=== PATIENT | male | born 1955 | race Caucasian/White ===

== ENCOUNTER 2022-07-23 12:14 | Inpatient (IN) ==
[2022-07-23] MEDS ORDERED: ACETAMINOPHEN 500 MG TABLET PO STA (12:53)
[2022-07-23] MEDS ORDERED: methylPREDNISolone SOD SUC 125 MG/2 ML VIAL IV STA (13:33)
[2022-07-23 13:44] LABS: Eosinophils % 0.1 % (0.00-10.9); Hematocrit 25.9 VOL% (42.0-52.0); Hemoglobin 8.2 GM/DL (14.0-18.0); Immature Granulocytes % 2.7 %; Immature Granulocytes Absolute 0.19 #; Lymphocytes # 0.2 10*3/uL (1.4-4.0); Lymphocytes % 3.2 % (21.2-54.2); Mean Corpuscular HGB Conc 31.7 GM/DL (32-36); Mean Corpuscular Volume 86.9 FL (87-102); Mean Platelet Volume 8.8 FL (9.6-12.0); Monocytes # 0.5 10*3/uL (0.11-0.8); Monocytes % 6.9 % (1.7-12.7); Neutrophils % 87.1 % (38.7-73.9); Platelet Count 344 T/CUMM (130-400); Red Blood Count 2.98 MC/CUMM (3.8-5.5); Red Cell Distribution Width 14.2 % (9.3-17.3); White Blood Count 6.9 T/CUMM (4-12)
[2022-07-23 14:02] LABS: Alanine Aminotransferase 32 U/L (16-61); Albumin 2.6 G/DL (3.4-5.0); Alkaline Phosphatase 53 U/L (45-117); Aspartate Amino Transferase 38 U/L (0-37); Bilirubin,Total < 0.39 MG/DL (0.20-1.00); Blood Urea Nitrogen 69 MG/DL (7-18); Calcium 8.3 MG/DL (8.5-10.1); Carbon Dioxide 17 MMOL/L (21-32); Chloride 106 MMOL/L (98-107); Glucose 142 MG/DL (74-106); Osmolality,Calculated 287.4 MOS/KG (273-304); Potassium 5.2 MMOL/L (3.5-5.1); Sodium 133 MMOL/L (136-145); Total Protein 5.6 G/DL (6.4-8.2)
[2022-07-23 14:09] LABS: Arterial Base Excess iSTAT -7 MMOL/L (-2.5-2.5); Arterial Bicarbonate iSTAT 16.7 MMOL/L (20-26); Arterial O2 Saturation iSTAT 88 % (95-100); Arterial PCO2 iSTAT 26 MM HG (35-48); Arterial PO2 iSTAT 53 MM HG (80-95); Arterial Total CO2 iSTAT 17 MMO/L (23-27); Arterial pH iSTAT 7.416 (7.35-7.45)
[2022-07-23] MEDS ORDERED: PIPERACILLIN/TAZOBACTAM 3,375 MG in SODIUM CHLORIDE 0.9% 100 ML IV STA (14:09)
[2022-07-23 15:55] LABS: Band Neutrophils 2 % (0-10); Lymphocytes 2 % (20-55); Ovalocytes Slight; Platelet Estimate Normal
[2022-07-23 15:56] LABS: Polychromasia Slight; Total Cells Counted 100
[2022-07-23] MEDS ORDERED: ALBUTEROL 2.5 MG/3 ML NEB RESP TX PRN (18:28)
[2022-07-23] MEDS ORDERED: ONDANSETRON 4 MG/2 ML VIAL IV PRN (18:28)
[2022-07-23] MEDS: DEXAMETHASONE 4 MG/1 ML VIAL IV SCH (19:20)
[2022-07-23] MEDS: LACTATED RINGERS 1,000 ML IV SCH (19:21)
[2022-07-23] MEDS: ENOXAPARIN 30 MG/0.3 ML SYRINGE SUBCUT SCH (20:34)
[2022-07-23] MEDS: FAMOTIDINE 20 MG TABLET PO SCH (20:34)
[2022-07-24] MEDS: LACTATED RINGERS 1,000 ML IV SCH (04:45)
[2022-07-24 04:52] LABS: Arterial Base Excess iSTAT -9 MMOL/L (-2.5-2.5); Arterial O2 Saturation iSTAT 96 % (95-100); Arterial PCO2 iSTAT 28 MM HG (35-48); Arterial PO2 iSTAT 81 MM HG (80-95); Arterial Total CO2 iSTAT 17 MMO/L (23-27); Arterial pH iSTAT 7.373 (7.35-7.45)
[2022-07-24] MEDS: DEXAMETHASONE 4 MG/1 ML VIAL IV SCH ×2 (05:58→18:22)
[2022-07-24 06:11] LABS: Hematocrit 27.2 VOL% (42.0-52.0); Hemoglobin 8.7 GM/DL (14.0-18.0); Immature Granulocytes % 2.2 %; Immature Granulocytes Absolute 0.08 #; Lymphocytes # 0.1 10*3/uL (1.4-4.0); Lymphocytes % 2.4 % (21.2-54.2); Mean Corpuscular Volume 87.2 FL (87-102); Mean Platelet Volume 8.7 FL (9.6-12.0); Monocytes # 0.1 10*3/uL (0.11-0.8); Monocytes % 2.4 % (1.7-12.7); Platelet Count 317 T/CUMM (130-400); Red Blood Count 3.12 MC/CUMM (3.8-5.5); Red Cell Distribution Width 14.2 % (9.3-17.3); White Blood Count 3.7 T/CUMM (4-12)
[2022-07-24 06:29] LABS: Calcium 7.9 MG/DL (8.5-10.1); Osmolality,Calculated 290.5 MOS/KG (273-304); Potassium 5.6 MMOL/L (3.5-5.1)
[2022-07-24 06:55] LABS: Hypochromia Slight; Lymphocytes 3 % (20-55); Microcytosis Slight; Platelet Estimate Adequate; Total Cells Counted 100
[2022-07-24] MEDS: cefTRIAXone 1,000 MG in SODIUM CHLORIDE 0.9% 100 ML IV SCH (08:44)
[2022-07-24] MEDS: CHOLECALCIFEROL 5,000 UNIT TABLET PO SCH (08:44)
[2022-07-24] MEDS: MULTIVITAMIN (BEROCCA) TABLET PO SCH (08:44)
[2022-07-24] MEDS: ASCORBIC ACID 500 MG TABLET PO SCH (08:44)
[2022-07-24] MEDS: SODIUM CHLORIDE 0.9% 1,000 ML IV SCH ×2 (10:38→20:32)
[2022-07-24] MEDS ORDERED: MYCOPHENOLATE MOFETIL 250 MG CAPSULE PO SCH (11:41)
[2022-07-24] MEDS: TACROLIMUS 0.5 MG CAPSULE PO SCH ×2 (12:18→20:32)
[2022-07-24] MEDS: ALPRAZolam 0.5 MG TABLET PO PRN (15:51)
[2022-07-24] MEDS: amLODIPine 5 MG TABLET PO SCH (18:22)
[2022-07-24] MEDS: cloNIDine 0.1 MG TABLET PO SCH (20:32)
[2022-07-24] MEDS: FAMOTIDINE 20 MG TABLET PO SCH (20:32)
[2022-07-24] MEDS: MYCOPHENOLATE MOFETIL 250 MG CAPSULE PO SCH (20:32)
[2022-07-24] MEDS: carvediloL 3.125 MG TABLET PO SCH (20:32)
[2022-07-24] MEDS: ENOXAPARIN 30 MG/0.3 ML SYRINGE SUBCUT SCH (20:32)
[2022-07-25 05:10] LABS: Arterial Base Excess iSTAT -9 MMOL/L (-2.5-2.5); Arterial Bicarbonate iSTAT 16.5 MMOL/L (20-26); Arterial O2 Saturation iSTAT 92 % (95-100); Arterial PCO2 iSTAT 32 MM HG (35-48); Arterial PO2 iSTAT 68 MM HG (80-95); Arterial Total CO2 iSTAT 17 MMO/L (23-27); Arterial pH iSTAT 7.328 (7.35-7.45)
[2022-07-25] MEDS: DEXAMETHASONE 4 MG/1 ML VIAL IV SCH ×2 (05:50→18:17)
[2022-07-25] MEDS: SODIUM CHLORIDE 0.9% 1,000 ML IV SCH (05:51)
[2022-07-25 06:10] LABS: Calcium 8.1 MG/DL (8.5-10.1); Potassium 5.6 MMOL/L (3.5-5.1)
[2022-07-25 07:29] LABS: Hemoglobin 8.7 GM/DL (14.0-18.0); Immature Granulocytes % 2.5 %; Immature Granulocytes Absolute 0.23 #; Lymphocytes # 0.1 10*3/uL (1.4-4.0); Lymphocytes % 1.3 % (21.2-54.2); Mean Corpuscular HGB Conc 32.2 GM/DL (32-36); Mean Corpuscular Volume 87.7 FL (87-102); Mean Platelet Volume 9.4 FL (9.6-12.0); Monocytes # 0.3 10*3/uL (0.11-0.8); Monocytes % 3.6 % (1.7-12.7); Neutrophils % 92.6 % (38.7-73.9); Platelet Count 366 T/CUMM (130-400); Red Blood Count 3.08 MC/CUMM (3.8-5.5); Red Cell Distribution Width 14.4 % (9.3-17.3); White Blood Count 9.1 T/CUMM (4-12)
[2022-07-25 08:02] LABS: Band Neutrophils 2 % (0-10); Hypochromia Slight; Lymphocytes 1 % (20-55); Microcytosis Slight; Ovalocytes Slight; Total Cells Counted 100
[2022-07-25 08:03] LABS: Acanthocytes Few
[2022-07-25] MEDS: carvediloL 3.125 MG TABLET PO SCH ×2 (09:47→18:17)
[2022-07-25] MEDS: MULTIVITAMIN (BEROCCA) TABLET PO SCH (09:47)
[2022-07-25] MEDS: amLODIPine 5 MG TABLET PO SCH (09:47)
[2022-07-25] MEDS: CHOLECALCIFEROL 5,000 UNIT TABLET PO SCH (09:47)
[2022-07-25] MEDS: TACROLIMUS 0.5 MG CAPSULE PO SCH ×2 (09:47→21:00)
[2022-07-25] MEDS: MYCOPHENOLATE MOFETIL 250 MG CAPSULE PO SCH ×2 (09:47→20:59)
[2022-07-25] MEDS: cefTRIAXone 1,000 MG in SODIUM CHLORIDE 0.9% 100 ML IV SCH (09:47)
[2022-07-25] MEDS: ASCORBIC ACID 500 MG TABLET PO SCH (09:47)
[2022-07-25] MEDS: ALPRAZolam 0.5 MG TABLET PO PRN ×3 (09:56→21:54)
[2022-07-25] MEDS: SODIUM BICARB INJ 50 MEQ in SODIUM CHLORIDE 0.45% 1,000 ML IV SCH ×2 (10:59→21:54)
[2022-07-25] MEDS ORDERED: REMDESIVIR 200 MG in SODIUM CHLORIDE 0.9% 210 ML IV ONE (12:00)
[2022-07-25] MEDS ORDERED: amLODIPine 5 MG TABLET PO SCH (17:53)
[2022-07-25] MEDS: cloNIDine 0.1 MG TABLET PO SCH (20:59)
[2022-07-25] MEDS: ENOXAPARIN 30 MG/0.3 ML SYRINGE SUBCUT SCH (21:00)
[2022-07-25] MEDS: FAMOTIDINE 20 MG TABLET PO SCH (21:00)
[2022-07-26 03:42] LABS: Arterial Base Excess iSTAT -7 MMOL/L (-2.5-2.5); Arterial Bicarbonate iSTAT 17.8 MMOL/L (20-26); Arterial O2 Saturation iSTAT 89 % (95-100); Arterial PCO2 iSTAT 32 MM HG (35-48); Arterial PO2 iSTAT 59 MM HG (80-95); Arterial Total CO2 iSTAT 19 MMO/L (23-27)
[2022-07-26 04:27] LABS: Hematocrit 28.5 VOL% (42.0-52.0); Hemoglobin 9.1 GM/DL (14.0-18.0); Immature Granulocytes % 1.7 %; Immature Granulocytes Absolute 0.21 #; Lymphocytes # 0.1 10*3/uL (1.4-4.0); Mean Corpuscular HGB Conc 31.9 GM/DL (32-36); Mean Corpuscular Volume 86.9 FL (87-102); Mean Platelet Volume 9.1 FL (9.6-12.0); Monocytes # 0.4 10*3/uL (0.11-0.8); Monocytes % 3.5 % (1.7-12.7); Neutrophils % 93.8 % (38.7-73.9); Platelet Count 391 T/CUMM (130-400); Red Blood Count 3.28 MC/CUMM (3.8-5.5); White Blood Count 12.1 T/CUMM (4-12)
[2022-07-26] MEDS: ALPRAZolam 0.5 MG TABLET PO PRN ×2 (04:40→10:50)
[2022-07-26 04:41] LABS: Calcium 7.7 MG/DL (8.5-10.1); Osmolality,Calculated 297.2 MOS/KG (273-304); Potassium 5.3 MMOL/L (3.5-5.1)
[2022-07-26 04:50] LABS: Hypochromia Slight; Lymphocytes 1 % (20-55); Microcytosis Slight; Platelet Estimate Adequate; Total Cells Counted 100
[2022-07-26] MEDS: DEXAMETHASONE 4 MG/1 ML VIAL IV SCH ×2 (05:58→17:44)
[2022-07-26] MEDS: SODIUM BICARB INJ 50 MEQ in SODIUM CHLORIDE 0.45% 1,000 ML IV SCH (07:50)
[2022-07-26] MEDS ORDERED: FUROSEMIDE 40 MG/4 ML VIAL IV ONE (07:51)
[2022-07-26] MEDS: cefTRIAXone 1,000 MG in SODIUM CHLORIDE 0.9% 100 ML IV SCH (08:15)
[2022-07-26] MEDS: MORPHINE 2 MG/1 ML SYRINGE IV PRN ×3 (08:15→14:00)
[2022-07-26] MEDS ORDERED: SODIUM BICARB INJ 100 MEQ in SODIUM CHLORIDE 0.45% 1,000 ML IV SCH (08:17)
[2022-07-26] MEDS: amLODIPine 5 MG TABLET PO SCH (08:20)
[2022-07-26] MEDS: ASCORBIC ACID 500 MG TABLET PO SCH (08:20)
[2022-07-26] MEDS: MYCOPHENOLATE MOFETIL 250 MG CAPSULE PO SCH ×2 (08:20→20:19)
[2022-07-26] MEDS: MULTIVITAMIN (BEROCCA) TABLET PO SCH (08:20)
[2022-07-26] MEDS: CHOLECALCIFEROL 5,000 UNIT TABLET PO SCH (08:20)
[2022-07-26] MEDS: TACROLIMUS 0.5 MG CAPSULE PO SCH ×2 (08:20→20:20)
[2022-07-26] MEDS: carvediloL 3.125 MG TABLET PO SCH ×2 (08:20→17:24)
[2022-07-26] MEDS: REMDESIVIR 100 MG in SODIUM CHLORIDE 0.9% 100 ML IV SCH (08:45)
[2022-07-26 09:05] LABS: Bacteria,Urine Occasional /HPF (Few); Mucus,Urine Occasional /LPF (Occasional); RBC,Urine 1 /HPF (0-4)
[2022-07-26 09:07] LABS: Bilirubin,Urine Negative (Negative); Blood, Urine Trace mg/dL (Negative); Glucose,Urine (UA) Negative (Negative); Ketones,Urine Negative (Negative); Nitrite,Urine Negative (Negative); Protein,Urine 100 mg/dL (Negative); Urine Appearance Clear (Clear); Urine Color Yellow (Yellow); Urine Urobilinogen 0.2 eU/dL (<2.0)
[2022-07-26] MEDS ORDERED: OLANZapine 10 MG VIAL IM PRN (10:52)
[2022-07-26] MEDS ORDERED: ROCURONIUM 100 MG/10 ML VIAL IV ONE ×2 (11:00→11:10)
[2022-07-26] MEDS ORDERED: ETOMIDATE 20 MG/10 ML VIAL IV ONE ×3 (11:00→11:09)
[2022-07-26] MEDS ORDERED: METOPROLOL TARTRATE 5 MG/5 ML VIAL IV ONE (11:38)
[2022-07-26 12:26] LABS: Arterial Bicarbonate iSTAT 18.4 MMOL/L (20-26); Arterial pH iSTAT 7.23 (7.35-7.45)
[2022-07-26] MEDS: fentaNYL INJ 1,250 MCG in SODIUM CHLORIDE 0.9% 225 ML IV PRN (14:50)
[2022-07-26] MEDS ORDERED: SODIUM BICARBONATE 50 MEQ/50 ML VIAL IV ONE (15:19)
[2022-07-26 17:06] LABS: Arterial Base Excess iSTAT -5 MMOL/L (-2.5-2.5); Arterial Bicarbonate iSTAT 21.1 MMOL/L (20-26); Arterial O2 Saturation iSTAT 99 % (95-100); Arterial PCO2 iSTAT 45 MM HG (35-48); Arterial PO2 iSTAT 180 MM HG (80-95); Arterial Total CO2 iSTAT 22 MMO/L (23-27); Arterial pH iSTAT 7.284 (7.35-7.45)
[2022-07-26 17:27] LABS: Calcium 7.4 MG/DL (8.5-10.1); Osmolality,Calculated 300.2 MOS/KG (273-304); Potassium 5.5 MMOL/L (3.5-5.1)
[2022-07-26] MEDS: ENOXAPARIN 30 MG/0.3 ML SYRINGE SUBCUT SCH (20:19)
[2022-07-26] MEDS: FAMOTIDINE 20 MG TABLET PO SCH (20:19)
[2022-07-26] MEDS: cloNIDine 0.1 MG TABLET PO SCH (20:19)
[2022-07-27 03:36] LABS: Arterial Bicarbonate iSTAT 18.1 MMOL/L (20-26); Arterial pH iSTAT 7.272 (7.35-7.45)
[2022-07-27 04:21] LABS: Basophils % 0.1 % (0.0-0.8); Hemoglobin 8.2 GM/DL (14.0-18.0); Immature Granulocytes % 1.9 %; Immature Granulocytes Absolute 0.18 #; Lymphocytes # 0.1 10*3/uL (1.4-4.0); Lymphocytes % 1.4 % (21.2-54.2); Mean Corpuscular HGB Conc 31.5 GM/DL (32-36); Mean Corpuscular Volume 87.8 FL (87-102); Mean Platelet Volume 9.2 FL (9.6-12.0); Monocytes # 0.2 10*3/uL (0.11-0.8); Monocytes % 2.1 % (1.7-12.7); Neutrophils % 94.5 % (38.7-73.9); Platelet Count 331 T/CUMM (130-400); Red Blood Count 2.96 MC/CUMM (3.8-5.5); Red Cell Distribution Width 14.1 % (9.3-17.3); White Blood Count 9.4 T/CUMM (4-12)
[2022-07-27 04:38] LABS: Phosphorous 6.2 MG/DL (2.5-4.9)
[2022-07-27 04:52] LABS: Band Neutrophils 1 % (0-10); Eosinophils 1 % (0-10); Lymphocytes 1 % (20-55); Microcytosis Slight; Total Cells Counted 100
[2022-07-27 04:53] LABS: Hypochromia Slight; Ovalocytes Slight; Platelet Estimate Normal
[2022-07-27] MEDS: DEXAMETHASONE 4 MG/1 ML VIAL IV SCH ×2 (06:32→18:14)
[2022-07-27 07:40] LABS: Calcium 7.6 MG/DL (8.5-10.1); Osmolality,Calculated 299.2 MOS/KG (273-304); Potassium 5.6 MMOL/L (3.5-5.1)
[2022-07-27] MEDS: amLODIPine 5 MG TABLET PO SCH (08:55)
[2022-07-27] MEDS: ASCORBIC ACID 500 MG TABLET PO SCH (08:55)
[2022-07-27] MEDS: TACROLIMUS 0.5 MG CAPSULE PO SCH ×2 (08:55→20:32)
[2022-07-27] MEDS: CHOLECALCIFEROL 5,000 UNIT TABLET PO SCH (08:56)
[2022-07-27] MEDS: carvediloL 3.125 MG TABLET PO SCH ×2 (08:56→16:15)
[2022-07-27] MEDS: MULTIVITAMIN (BEROCCA) TABLET PO SCH (08:56)
[2022-07-27] MEDS: MYCOPHENOLATE MOFETIL 250 MG CAPSULE PO SCH ×2 (08:56→20:32)
[2022-07-27] MEDS: cefTRIAXone 1,000 MG in SODIUM CHLORIDE 0.9% 100 ML IV SCH (08:56)
[2022-07-27] MEDS: REMDESIVIR 100 MG in SODIUM CHLORIDE 0.9% 100 ML IV SCH (08:57)
[2022-07-27] MEDS: SODIUM BICARBONATE 650 MG TABLET PO SCH ×2 (09:53→20:32)
[2022-07-27] MEDS: CALCIUM ACETATE 667 MG CAPSULE PO SCH ×2 (11:56→16:15)
[2022-07-27] MEDS: fentaNYL INJ 1,250 MCG in SODIUM CHLORIDE 0.9% 225 ML IV PRN (12:30)
[2022-07-27] MEDS: INSULIN LISPRO 100 UNIT/ML SUBCUT SCH (18:13)
[2022-07-27] MEDS: FAMOTIDINE 20 MG TABLET PO SCH (20:32)
[2022-07-27] MEDS: ENOXAPARIN 30 MG/0.3 ML SYRINGE SUBCUT SCH (20:32)
[2022-07-27] MEDS: cloNIDine 0.1 MG TABLET PO SCH (20:32)
[2022-07-28] MEDS: INSULIN LISPRO 100 UNIT/ML SUBCUT SCH ×4 (00:18→17:28)
[2022-07-28 03:39] LABS: Arterial pH iSTAT 7.303 (7.35-7.45)
[2022-07-28 03:44] LABS: Basophils % 0.1 % (0.0-0.8); Hematocrit 23.7 VOL% (42.0-52.0); Hemoglobin 7.7 GM/DL (14.0-18.0); Immature Granulocytes % 2.2 %; Immature Granulocytes Absolute 0.25 #; Lymphocytes # 0.1 10*3/uL (1.4-4.0); Mean Corpuscular HGB Conc 32.5 GM/DL (32-36); Mean Corpuscular Volume 86.8 FL (87-102); Mean Platelet Volume 9.2 FL (9.6-12.0); Monocytes # 0.3 10*3/uL (0.11-0.8); Neutrophils % 93.7 % (38.7-73.9); Platelet Count 303 T/CUMM (130-400); Red Blood Count 2.73 MC/CUMM (3.8-5.5); Red Cell Distribution Width 14.1 % (9.3-17.3); White Blood Count 11.2 T/CUMM (4-12)
[2022-07-28 04:04] LABS: Phosphorous 6.3 MG/DL (2.5-4.9)
[2022-07-28 04:10] LABS: Alanine Aminotransferase 24 U/L (16-61); Albumin 1.8 G/DL (3.4-5.0); Alkaline Phosphatase 50 U/L (45-117); Aspartate Amino Transferase 20 U/L (0-37); Bilirubin,Total < 0.39 MG/DL (0.20-1.00); Blood Urea Nitrogen 103 MG/DL (7-18); Calcium 7.8 MG/DL (8.5-10.1); Carbon Dioxide 19 MMOL/L (21-32); Chloride 103 MMOL/L (98-107); Glucose 216 MG/DL (74-106); Osmolality,Calculated 300.7 MOS/KG (273-304); Potassium 5.6 MMOL/L (3.5-5.1); Sodium 131 MMOL/L (136-145); Total Protein 4.4 G/DL (6.4-8.2)
[2022-07-28 04:15] LABS: Band Neutrophils 1 % (0-10); Hypochromia Slight; Lymphocytes 2 % (20-55); Microcytosis Slight; Ovalocytes Slight; Total Cells Counted 100
[2022-07-28] MEDS: DEXAMETHASONE 4 MG/1 ML VIAL IV SCH ×2 (06:00→17:30)
[2022-07-28] MEDS: cefTRIAXone 1,000 MG in SODIUM CHLORIDE 0.9% 100 ML IV SCH (08:34)
[2022-07-28] MEDS: TACROLIMUS 0.5 MG CAPSULE PO SCH ×2 (08:36→21:08)
[2022-07-28] MEDS: MYCOPHENOLATE MOFETIL 250 MG CAPSULE PO SCH ×2 (08:36→21:07)
[2022-07-28] MEDS: ASCORBIC ACID 500 MG TABLET PO SCH (08:36)
[2022-07-28] MEDS: CALCIUM ACETATE 667 MG CAPSULE PO SCH ×3 (08:36→17:28)
[2022-07-28] MEDS: CHOLECALCIFEROL 5,000 UNIT TABLET PO SCH (08:37)
[2022-07-28] MEDS: amLODIPine 5 MG TABLET PO SCH (08:37)
[2022-07-28] MEDS: SODIUM BICARBONATE 650 MG TABLET PO SCH ×3 (08:37→21:08)
[2022-07-28] MEDS: MULTIVITAMIN (BEROCCA) TABLET PO SCH (08:37)
[2022-07-28] MEDS: carvediloL 3.125 MG TABLET PO SCH ×2 (08:37→17:10)
[2022-07-28] MEDS: REMDESIVIR 100 MG in SODIUM CHLORIDE 0.9% 100 ML IV SCH (09:12)
[2022-07-28] MEDS: INSULIN GLARGINE 100 UNIT/ML SUBCUT SCH (11:18)
[2022-07-28] MEDS: ALPRAZolam 0.5 MG TABLET PO PRN (12:51)
[2022-07-28] MEDS: fentaNYL INJ 1,250 MCG in SODIUM CHLORIDE 0.9% 225 ML IV PRN (14:00)
[2022-07-28] MEDS: SODIUM ZIRCONIUM CYCLOSILICATE 10 GM PACK PO SCH ×2 (14:11→21:07)
[2022-07-28] MEDS: cloNIDine 0.1 MG TABLET PO SCH (21:07)
[2022-07-28] MEDS: FAMOTIDINE 20 MG TABLET PO SCH (21:08)
[2022-07-28] MEDS: ENOXAPARIN 30 MG/0.3 ML SYRINGE SUBCUT SCH (21:08)
[2022-07-29] MEDS: INSULIN LISPRO 100 UNIT/ML SUBCUT SCH ×5 (00:02→17:51)
[2022-07-29] MEDS: MORPHINE 2 MG/1 ML SYRINGE IV PRN (01:33)
[2022-07-29 03:37] LABS: Arterial Bicarbonate iSTAT 18.2 MMOL/L (20-26); Arterial pH iSTAT 7.27 (7.35-7.45)
[2022-07-29 05:13] LABS: Basophils % 0.1 % (0.0-0.8); Hematocrit 22.5 VOL% (42.0-52.0); Hemoglobin 7.4 GM/DL (14.0-18.0); Immature Granulocytes Absolute 0.29 #; Lymphocytes # 0.2 10*3/uL (1.4-4.0); Lymphocytes % 1.2 % (21.2-54.2); Mean Corpuscular HGB Conc 32.9 GM/DL (32-36); Mean Corpuscular Volume 86.5 FL (87-102); Mean Platelet Volume 9.5 FL (9.6-12.0); Monocytes # 0.4 10*3/uL (0.11-0.8); Monocytes % 3.1 % (1.7-12.7); Neutrophils % 93.6 % (38.7-73.9); Platelet Count 304 T/CUMM (130-400); Red Cell Distribution Width 13.9 % (9.3-17.3); White Blood Count 14.4 T/CUMM (4-12)
[2022-07-29 05:29] LABS: Alanine Aminotransferase 25 U/L (16-61); Albumin 1.7 G/DL (3.4-5.0); Alkaline Phosphatase 47 U/L (45-117); Aspartate Amino Transferase 22 U/L (0-37); Bilirubin,Total < 0.39 MG/DL (0.20-1.00); Blood Urea Nitrogen 102 MG/DL (7-18); Carbon Dioxide 20 MMOL/L (21-32); Chloride 101 MMOL/L (98-107); Glucose 167 MG/DL (74-106); Osmolality,Calculated 301.4 MOS/KG (273-304); Potassium 5.2 MMOL/L (3.5-5.1); Sodium 133 MMOL/L (136-145); Total Protein 4.4 G/DL (6.4-8.2)
[2022-07-29] MEDS: fentaNYL INJ 1,250 MCG in SODIUM CHLORIDE 0.9% 225 ML IV PRN ×2 (05:34→20:25)
[2022-07-29 05:36] LABS: Phosphorous 6.5 MG/DL (2.5-4.9)
[2022-07-29 05:38] LABS: Lymphocytes 1 % (20-55); Platelet Estimate Adequate; Total Cells Counted 100
[2022-07-29 05:39] LABS: Hypochromia 1+; Microcytosis 1+; Ovalocytes Slight
[2022-07-29] MEDS: DEXAMETHASONE 4 MG/1 ML VIAL IV SCH ×2 (06:29→17:51)
[2022-07-29] MEDS: cefTRIAXone 1,000 MG in SODIUM CHLORIDE 0.9% 100 ML IV SCH (08:43)
[2022-07-29] MEDS: SODIUM ZIRCONIUM CYCLOSILICATE 10 GM PACK PO SCH ×3 (08:43→20:03)
[2022-07-29] MEDS: CALCIUM ACETATE 667 MG CAPSULE PO SCH ×3 (08:44→16:49)
[2022-07-29] MEDS: SODIUM BICARBONATE 650 MG TABLET PO SCH ×3 (08:44→20:02)
[2022-07-29] MEDS: MULTIVITAMIN (BEROCCA) TABLET PO SCH (08:45)
[2022-07-29] MEDS: ASCORBIC ACID 500 MG TABLET PO SCH (08:45)
[2022-07-29] MEDS: TACROLIMUS 0.5 MG CAPSULE PO SCH (08:45)
[2022-07-29] MEDS: MYCOPHENOLATE MOFETIL 250 MG CAPSULE PO SCH ×2 (08:45→20:02)
[2022-07-29] MEDS: carvediloL 3.125 MG TABLET PO SCH ×2 (08:45→16:49)
[2022-07-29] MEDS: amLODIPine 5 MG TABLET PO SCH (08:45)
[2022-07-29] MEDS: CHOLECALCIFEROL 5,000 UNIT TABLET PO SCH (08:45)
[2022-07-29] MEDS: INSULIN GLARGINE 100 UNIT/ML SUBCUT SCH (08:47)
[2022-07-29] MEDS: FAMOTIDINE 20 MG TABLET PO SCH (20:02)
[2022-07-29] MEDS: ENOXAPARIN 30 MG/0.3 ML SYRINGE SUBCUT SCH (20:02)
[2022-07-29] MEDS: cloNIDine 0.1 MG TABLET PO SCH (20:03)
[2022-07-30] MEDS: INSULIN LISPRO 100 UNIT/ML SUBCUT SCH ×5 (00:39→23:39)
[2022-07-30 03:20] LABS: Arterial Base Excess iSTAT -6 MMOL/L (-2.5-2.5); Arterial O2 Saturation iSTAT 93 % (95-100); Arterial PCO2 iSTAT 49 MM HG (35-48); Arterial PO2 iSTAT 80 MM HG (80-95); Arterial Total CO2 iSTAT 22 MMO/L (23-27); Arterial pH iSTAT 7.237 (7.35-7.45)
[2022-07-30 03:25] LABS: Basophils % 0.1 % (0.0-0.8); Hematocrit 23.5 VOL% (42.0-52.0); Hemoglobin 7.8 GM/DL (14.0-18.0); Immature Granulocytes % 2.9 %; Immature Granulocytes Absolute 0.45 #; Lymphocytes # 0.1 10*3/uL (1.4-4.0); Lymphocytes % 0.7 % (21.2-54.2); Mean Corpuscular HGB Conc 33.2 GM/DL (32-36); Mean Corpuscular Volume 86.4 FL (87-102); Mean Platelet Volume 9.1 FL (9.6-12.0); Monocytes # 0.4 10*3/uL (0.11-0.8); Monocytes % 2.6 % (1.7-12.7); Neutrophils % 93.7 % (38.7-73.9); Platelet Count 269 T/CUMM (130-400); Red Blood Count 2.72 MC/CUMM (3.8-5.5); White Blood Count 15.7 T/CUMM (4-12)
[2022-07-30 03:43] LABS: Hypochromia Slight; Lymphocytes 3 % (20-55); Microcytosis Slight; Platelet Estimate Adequate; Total Cells Counted 100
[2022-07-30 04:03] LABS: Alanine Aminotransferase 31 U/L (16-61); Albumin 1.7 G/DL (3.4-5.0); Alkaline Phosphatase 47 U/L (45-117); Aspartate Amino Transferase 22 U/L (0-37); Bilirubin,Total < 0.39 MG/DL (0.20-1.00); Blood Urea Nitrogen 118 MG/DL (7-18); Calcium 8.5 MG/DL (8.5-10.1); Carbon Dioxide 21 MMOL/L (21-32); Chloride 99 MMOL/L (98-107); Ferritin 204.1 ng/mL (26-388); Glucose 165 MG/DL (74-106); Osmolality,Calculated 305.5 MOS/KG (273-304); Sodium 132 MMOL/L (136-145); Total Protein 4.9 G/DL (6.4-8.2)
[2022-07-30] MEDS: DEXAMETHASONE 4 MG/1 ML VIAL IV SCH ×2 (05:41→20:02)
[2022-07-30] MEDS: CALCIUM ACETATE 667 MG CAPSULE PO SCH ×3 (08:57→17:05)
[2022-07-30] MEDS: carvediloL 3.125 MG TABLET PO SCH ×2 (08:57→17:03)
[2022-07-30] MEDS: MYCOPHENOLATE MOFETIL 250 MG CAPSULE PO SCH ×2 (08:59→20:02)
[2022-07-30] MEDS: CHOLECALCIFEROL 5,000 UNIT TABLET PO SCH (08:59)
[2022-07-30] MEDS: SODIUM ZIRCONIUM CYCLOSILICATE 10 GM PACK PO SCH (08:59)
[2022-07-30] MEDS: MULTIVITAMIN (BEROCCA) TABLET PO SCH (08:59)
[2022-07-30] MEDS: ASCORBIC ACID 500 MG TABLET PO SCH (08:59)
[2022-07-30] MEDS: cefTRIAXone 1,000 MG in SODIUM CHLORIDE 0.9% 100 ML IV SCH (09:00)
[2022-07-30] MEDS: amLODIPine 5 MG TABLET PO SCH (09:00)
[2022-07-30] MEDS: SODIUM BICARBONATE 650 MG TABLET PO SCH ×3 (09:12→20:03)
[2022-07-30] MEDS: INSULIN GLARGINE 100 UNIT/ML SUBCUT SCH (09:13)
[2022-07-30] MEDS: fentaNYL INJ 1,250 MCG in SODIUM CHLORIDE 0.9% 225 ML IV PRN ×2 (10:00→17:42)
[2022-07-30] MEDS ORDERED: ceFAZolin 1,000 MG VIAL ONE (17:17)
[2022-07-30] MEDS: ENOXAPARIN 30 MG/0.3 ML SYRINGE SUBCUT SCH (20:02)
[2022-07-30] MEDS: FAMOTIDINE 20 MG TABLET PO SCH (20:03)
[2022-07-30] MEDS: cloNIDine 0.1 MG TABLET PO SCH (20:03)
[2022-07-31] MEDS: fentaNYL INJ 1,250 MCG in SODIUM CHLORIDE 0.9% 225 ML IV PRN (00:18)
[2022-07-31 04:17] LABS: Arterial Bicarbonate iSTAT 19.6 MMOL/L (20-26); Arterial pH iSTAT 7.239 (7.35-7.45)
[2022-07-31 04:17] LABS: Hematocrit 23.4 VOL% (42.0-52.0); Hemoglobin 7.6 GM/DL (14.0-18.0); Immature Granulocytes % 2.5 %; Immature Granulocytes Absolute 0.39 #; Lymphocytes # 0.1 10*3/uL (1.4-4.0); Lymphocytes % 0.7 % (21.2-54.2); Mean Corpuscular HGB Conc 32.5 GM/DL (32-36); Mean Corpuscular Volume 87.3 FL (87-102); Mean Platelet Volume 9.6 FL (9.6-12.0); Monocytes # 0.3 10*3/uL (0.11-0.8); Monocytes % 1.6 % (1.7-12.7); Neutrophils % 95.2 % (38.7-73.9); Platelet Count 271 T/CUMM (130-400); Red Blood Count 2.68 MC/CUMM (3.8-5.5); Red Cell Distribution Width 14.3 % (9.3-17.3); White Blood Count 15.3 T/CUMM (4-12)
[2022-07-31 04:48] LABS: % Iron Saturation 5.6 % (18-50); Ferritin 256.2 ng/mL (26-388)
[2022-07-31 04:49] LABS: Alanine Aminotransferase 25 U/L (16-61); Albumin 1.7 G/DL (3.4-5.0); Alkaline Phosphatase 44 U/L (45-117); Aspartate Amino Transferase 21 U/L (0-37); Bilirubin,Total < 0.39 MG/DL (0.20-1.00); Blood Urea Nitrogen 137 MG/DL (7-18); Calcium 8.3 MG/DL (8.5-10.1); Carbon Dioxide 21 MMOL/L (21-32); Chloride 98 MMOL/L (98-107); Glucose 192 MG/DL (74-106); Osmolality,Calculated 308.8 MOS/KG (273-304); Sodium 130 MMOL/L (136-145)
[2022-07-31 04:52] LABS: Band Neutrophils 3 % (0-10); Lymphocytes 1 % (20-55); Total Cells Counted 100
[2022-07-31 04:53] LABS: Hypochromia Slight; Microcytosis Slight; Ovalocytes Slight
[2022-07-31 04:54] LABS: Polychromasia Slight
[2022-07-31 04:56] LABS: Platelet Estimate Normal; Tear Drop Cells Slight
[2022-07-31] MEDS: INSULIN LISPRO 100 UNIT/ML SUBCUT SCH ×4 (06:27→23:48)
[2022-07-31] MEDS: DEXAMETHASONE 4 MG/1 ML VIAL IV SCH ×2 (06:28→18:42)
[2022-07-31] MEDS: INSULIN GLARGINE 100 UNIT/ML SUBCUT SCH (08:13)
[2022-07-31] MEDS: AZITHROMYCIN 250 MG TABLET PO SCH (08:13)
[2022-07-31] MEDS: ZINC GLUCONATE 50 MG TABLET PO SCH (08:13)
[2022-07-31] MEDS: CALCIUM ACETATE 667 MG CAPSULE PO SCH ×3 (08:14→17:34)
[2022-07-31] MEDS: MYCOPHENOLATE MOFETIL 250 MG CAPSULE PO SCH ×2 (08:14→20:10)
[2022-07-31] MEDS: SODIUM BICARBONATE 650 MG TABLET PO SCH ×3 (08:14→20:10)
[2022-07-31] MEDS: CHOLECALCIFEROL 5,000 UNIT TABLET PO SCH (08:14)
[2022-07-31] MEDS: ASCORBIC ACID 500 MG TABLET PO SCH (08:14)
[2022-07-31] MEDS: amLODIPine 5 MG TABLET PO SCH (08:14)
[2022-07-31] MEDS: carvediloL 3.125 MG TABLET PO SCH ×2 (08:14→17:34)
[2022-07-31] MEDS: MULTIVITAMIN (BEROCCA) TABLET PO SCH (08:15)
[2022-07-31 13:22] LABS: Hepatitis B Core IgM Quant 0.13 Index; Hepatitis B Surface Ag Quant < 0.10 Index; Hepatitis B Surface Ag Result Non-Reactive (NonReactive); Hepatitis C Virus Ab Quant 0.02 Index; Hepatitis C Virus Ab Result Non-Reactive (NonReactive)
[2022-07-31] MEDS ORDERED: MEROPENEM 2,000 MG in SODIUM CHLORIDE 0.9% 100 ML IV SCH (14:30)
[2022-07-31] MEDS ORDERED: VANCOMYCIN INJ 750 MG in SODIUM CHLORIDE 0.9% 250 ML IV PRN (14:33)
[2022-07-31] MEDS ORDERED: HEPARIN 10,000 UNIT/10 ML VIAL IV SCH (17:30)
[2022-07-31] MEDS: FERROUS SULFATE 300 MG/5 ML UDCUP PO SCH (17:41)
[2022-07-31] MEDS: MEROPENEM 500 MG in SODIUM CHLORIDE 0.9% 100 ML IV SCH (17:42)
[2022-07-31] MEDS ORDERED: VANCOMYCIN INJ 2,000 MG in SODIUM CHLORIDE 0.9% 500 ML IV ONE (18:00)
[2022-07-31] MEDS: FAMOTIDINE 20 MG TABLET PO SCH (20:10)
[2022-07-31] MEDS: cloNIDine 0.1 MG TABLET PO SCH (20:10)
[2022-07-31] MEDS: ENOXAPARIN 30 MG/0.3 ML SYRINGE SUBCUT SCH (20:10)
[2022-08-01] MEDS: fentaNYL INJ 1,250 MCG in SODIUM CHLORIDE 0.9% 225 ML IV PRN ×2 (02:29→20:40)
[2022-08-01 03:59] LABS: Arterial Bicarbonate iSTAT 23.1 MMOL/L (20-26); Arterial pH iSTAT 7.294 (7.35-7.45)
[2022-08-01 04:12] LABS: Basophils % 0.1 % (0.0-0.8); Hematocrit 21.5 VOL% (42.0-52.0); Hemoglobin 6.9 GM/DL (14.0-18.0); Immature Granulocytes Absolute 0.31 #; Lymphocytes # 0.1 10*3/uL (1.4-4.0); Lymphocytes % 0.6 % (21.2-54.2); Mean Corpuscular HGB Conc 32.1 GM/DL (32-36); Mean Corpuscular Volume 85.3 FL (87-102); Mean Platelet Volume 9.7 FL (9.6-12.0); Monocytes # 0.2 10*3/uL (0.11-0.8); Monocytes % 1.9 % (1.7-12.7); Neutrophils % 94.4 % (38.7-73.9); Platelet Count 264 T/CUMM (130-400); Red Blood Count 2.52 MC/CUMM (3.8-5.5); Red Cell Distribution Width 14.4 % (9.3-17.3); White Blood Count 10.3 T/CUMM (4-12)
[2022-08-01 04:34] LABS: Alanine Aminotransferase 20 U/L (16-61); Albumin 1.5 G/DL (3.4-5.0); Alkaline Phosphatase 43 U/L (45-117); Aspartate Amino Transferase 18 U/L (0-37); Bilirubin,Total < 0.39 MG/DL (0.20-1.00); Blood Urea Nitrogen 109 MG/DL (7-18); Calcium 8.6 MG/DL (8.5-10.1); Carbon Dioxide 22 MMOL/L (21-32); Chloride 99 MMOL/L (98-107); Glucose 151 MG/DL (74-106); Osmolality,Calculated 304.2 MOS/KG (273-304); Potassium 4.6 MMOL/L (3.5-5.1); Sodium 134 MMOL/L (136-145); Total Protein 4.9 G/DL (6.4-8.2)
[2022-08-01 04:41] LABS: Folate 21.18 NG/ML (5.38-24.0); Vitamin B12 953 PG/ML (211-911)
[2022-08-01 04:46] LABS: Lymphocytes 1 % (20-55); Total Cells Counted 100
[2022-08-01 04:47] LABS: Acanthocytes Few; Microcytosis 1+; Ovalocytes Few
[2022-08-01 04:48] LABS: Tear Drop Cells Slight
[2022-08-01] MEDS ORDERED: SODIUM CHLORIDE 0.9% 1,000 ML IV PRN ×2 (04:48→08:16)
[2022-08-01] MEDS: INSULIN LISPRO 100 UNIT/ML SUBCUT SCH ×3 (05:18→17:41)
[2022-08-01] MEDS: DEXAMETHASONE 4 MG/1 ML VIAL IV SCH ×2 (06:00→17:41)
[2022-08-01] MEDS: SODIUM BICARBONATE 650 MG TABLET PO SCH (09:13)
[2022-08-01] MEDS: CALCIUM ACETATE 667 MG CAPSULE PO SCH ×3 (09:13→16:47)
[2022-08-01] MEDS: MULTIVITAMIN (BEROCCA) TABLET PO SCH (09:14)
[2022-08-01] MEDS: FERROUS SULFATE 300 MG/5 ML UDCUP PO SCH ×2 (09:14→16:47)
[2022-08-01] MEDS: ASCORBIC ACID 500 MG TABLET PO SCH (09:14)
[2022-08-01] MEDS: AZITHROMYCIN 250 MG TABLET PO SCH (09:15)
[2022-08-01] MEDS: MYCOPHENOLATE MOFETIL 250 MG CAPSULE PO SCH ×2 (09:15→20:38)
[2022-08-01] MEDS: carvediloL 3.125 MG TABLET PO SCH ×2 (09:15→16:47)
[2022-08-01] MEDS: ZINC GLUCONATE 50 MG TABLET PO SCH (09:15)
[2022-08-01] MEDS: CHOLECALCIFEROL 5,000 UNIT TABLET PO SCH (09:15)
[2022-08-01] MEDS: amLODIPine 5 MG TABLET PO SCH (09:15)
[2022-08-01] MEDS: INSULIN GLARGINE 100 UNIT/ML SUBCUT SCH (09:16)
[2022-08-01] MEDS: METOCLOPRAMIDE 10 MG/2 ML VIAL IV SCH ×2 (11:37→21:00)
[2022-08-01] MEDS ORDERED: METOPROLOL TARTRATE 5 MG/5 ML VIAL IV ONE ×2 (13:57→15:00)
[2022-08-01] MEDS: MEROPENEM 500 MG in SODIUM CHLORIDE 0.9% 100 ML IV SCH (16:48)
[2022-08-01] MEDS ORDERED: VANCOMYCIN INJ 750 MG in SODIUM CHLORIDE 0.9% 250 ML IV ONE (17:00)
[2022-08-01] MEDS: FAMOTIDINE 20 MG TABLET PO SCH (20:38)
[2022-08-01] MEDS: cloNIDine 0.1 MG TABLET PO SCH (20:38)
[2022-08-01] MEDS: ENOXAPARIN 30 MG/0.3 ML SYRINGE SUBCUT SCH (20:38)
[2022-08-02] MEDS: INSULIN LISPRO 100 UNIT/ML SUBCUT SCH ×5 (01:12→23:48)
[2022-08-02 03:11] LABS: Arterial Bicarbonate iSTAT 24.2 MMOL/L (20-26); Arterial pH iSTAT 7.285 (7.35-7.45)
[2022-08-02 03:30] LABS: Basophils % 0.1 % (0.0-0.8); Hematocrit 28.8 VOL% (42.0-52.0); Hemoglobin 9.4 GM/DL (14.0-18.0); Immature Granulocytes % 2.2 %; Immature Granulocytes Absolute 0.26 #; Lymphocytes # 0.1 10*3/uL (1.4-4.0); Lymphocytes % 0.6 % (21.2-54.2); Mean Corpuscular HGB Conc 32.6 GM/DL (32-36); Mean Corpuscular Volume 86.5 FL (87-102); Mean Platelet Volume 9.6 FL (9.6-12.0); Monocytes # 0.3 10*3/uL (0.11-0.8); Monocytes % 2.3 % (1.7-12.7); Neutrophils % 94.8 % (38.7-73.9); Platelet Count 267 T/CUMM (130-400); Red Blood Count 3.33 MC/CUMM (3.8-5.5); Red Cell Distribution Width 14.4 % (9.3-17.3); White Blood Count 11.7 T/CUMM (4-12)
[2022-08-02 03:36] LABS: Alanine Aminotransferase 22 U/L (16-61); Albumin 1.6 G/DL (3.4-5.0); Alkaline Phosphatase 46 U/L (45-117); Aspartate Amino Transferase 15 U/L (0-37); Bilirubin,Total < 0.39 MG/DL (0.20-1.00); Blood Urea Nitrogen 79 MG/DL (7-18); Calcium 8.4 MG/DL (8.5-10.1); Carbon Dioxide 24 MMOL/L (21-32); Chloride 100 MMOL/L (98-107); Ferritin 289.7 ng/mL (26-388); Glucose 184 MG/DL (74-106); Osmolality,Calculated 296.2 MOS/KG (273-304); Potassium 4.7 MMOL/L (3.5-5.1); Sodium 134 MMOL/L (136-145); Total Protein 5.1 G/DL (6.4-8.2)
[2022-08-02 03:59] LABS: Band Neutrophils 5 % (0-10); Lymphocytes 1 % (20-55); Platelet Estimate Normal; Total Cells Counted 100
[2022-08-02] MEDS: METOCLOPRAMIDE 10 MG/2 ML VIAL IV SCH ×3 (06:04→21:17)
[2022-08-02] MEDS: DEXAMETHASONE 4 MG/1 ML VIAL IV SCH (06:05)
[2022-08-02] MEDS: fentaNYL INJ 1,250 MCG in SODIUM CHLORIDE 0.9% 225 ML IV PRN ×2 (08:20→17:44)
[2022-08-02] MEDS: MYCOPHENOLATE MOFETIL 250 MG CAPSULE PO SCH ×2 (08:29→20:22)
[2022-08-02] MEDS: INSULIN GLARGINE 100 UNIT/ML SUBCUT SCH (08:29)
[2022-08-02] MEDS: CALCIUM ACETATE 667 MG CAPSULE PO SCH ×3 (08:29→17:02)
[2022-08-02] MEDS: CHOLECALCIFEROL 5,000 UNIT TABLET PO SCH (08:29)
[2022-08-02] MEDS: ASCORBIC ACID 500 MG TABLET PO SCH (08:29)
[2022-08-02] MEDS: carvediloL 3.125 MG TABLET PO SCH ×2 (08:29→17:02)
[2022-08-02] MEDS: MULTIVITAMIN (BEROCCA) TABLET PO SCH (08:29)
[2022-08-02] MEDS: amLODIPine 5 MG TABLET PO SCH (08:29)
[2022-08-02] MEDS: FERROUS SULFATE 300 MG/5 ML UDCUP PO SCH ×2 (08:29→17:02)
[2022-08-02] MEDS: AZITHROMYCIN 250 MG TABLET PO SCH (08:29)
[2022-08-02] MEDS: ZINC GLUCONATE 50 MG TABLET PO SCH (08:29)
[2022-08-02 09:35] LABS: Arterial Bicarbonate iSTAT 23.7 MMOL/L (20-26); Arterial pH iSTAT 7.302 (7.35-7.45)
[2022-08-02] MEDS: MEROPENEM 500 MG in SODIUM CHLORIDE 0.9% 100 ML IV SCH (17:02)
[2022-08-02] MEDS ORDERED: VANCOMYCIN INJ 750 MG in SODIUM CHLORIDE 0.9% 250 ML IV ONE (18:00)
[2022-08-02] MEDS: FAMOTIDINE 20 MG TABLET PO SCH (20:23)
[2022-08-02] MEDS: SENNA 8.6 MG TABLET PO SCH (20:23)
[2022-08-02] MEDS: cloNIDine 0.1 MG TABLET PO SCH (20:23)
[2022-08-02] MEDS: ENOXAPARIN 30 MG/0.3 ML SYRINGE SUBCUT SCH (20:24)
[2022-08-03] MEDS: fentaNYL INJ 1,250 MCG in SODIUM CHLORIDE 0.9% 225 ML IV PRN ×3 (03:32→17:50)
[2022-08-03 04:40] LABS: Arterial Base Excess iSTAT -3 MMOL/L (-2.5-2.5); Arterial Bicarbonate iSTAT 23.9 MMOL/L (20-26); Arterial O2 Saturation iSTAT 84 % (95-100); Arterial PCO2 iSTAT 50 MM HG (35-48); Arterial PO2 iSTAT 55 MM HG (80-95); Arterial Total CO2 iSTAT 25 MMO/L (23-27); Arterial pH iSTAT 7.291 (7.35-7.45)
[2022-08-03 04:54] LABS: Basophils % 0.1 % (0.0-0.8); Eosinophils # 0.2 10*3/uL (0.0-0.87); Eosinophils % 1.3 % (0.00-10.9); Hematocrit 32.8 VOL% (42.0-52.0); Hemoglobin 10.3 GM/DL (14.0-18.0); Immature Granulocytes % 4.1 %; Immature Granulocytes Absolute 0.55 #; Lymphocytes # 0.2 10*3/uL (1.4-4.0); Lymphocytes % 1.4 % (21.2-54.2); Mean Corpuscular HGB Conc 31.4 GM/DL (32-36); Mean Corpuscular Volume 88.4 FL (87-102); Mean Platelet Volume 9.6 FL (9.6-12.0); Monocytes # 0.2 10*3/uL (0.11-0.8); Monocytes % 1.3 % (1.7-12.7); NRBC # 0.03 10*3/uL; Neutrophils % 91.8 % (38.7-73.9); Platelet Count 275 T/CUMM (130-400); Red Blood Count 3.71 MC/CUMM (3.8-5.5); Red Cell Distribution Width 14.6 % (9.3-17.3); White Blood Count 13.6 T/CUMM (4-12)
[2022-08-03 05:46] LABS: Alanine Aminotransferase 19 U/L (16-61); Albumin 1.6 G/DL (3.4-5.0); Alkaline Phosphatase 51 U/L (45-117); Aspartate Amino Transferase 11 U/L (0-37); Bilirubin,Total < 0.39 MG/DL (0.20-1.00); Blood Urea Nitrogen 77 MG/DL (7-18); Calcium 8.7 MG/DL (8.5-10.1); Carbon Dioxide 25 MMOL/L (21-32); Chloride 102 MMOL/L (98-107); Glucose 95 MG/DL (74-106); Osmolality,Calculated 297.7 MOS/KG (273-304); Sodium 138 MMOL/L (136-145); Total Protein 4.6 G/DL (6.4-8.2)
[2022-08-03] MEDS: METOCLOPRAMIDE 10 MG/2 ML VIAL IV SCH ×3 (05:54→21:17)
[2022-08-03 05:57] LABS: Anisocytosis Slight; Band Neutrophils 4 % (0-10); Burr Cells Few; Eosinophils 1 % (0-10); Lymphocytes 4 % (20-55); Nucleated Red Blood Cells 1 /100 WBC (0-5); Platelet Estimate Normal; Tear Drop Cells Few; Total Cells Counted 100
[2022-08-03] MEDS: INSULIN LISPRO 100 UNIT/ML SUBCUT SCH ×3 (06:02→18:14)
[2022-08-03] MEDS: MYCOPHENOLATE MOFETIL 250 MG CAPSULE PO SCH ×2 (08:31→21:20)
[2022-08-03] MEDS: CHOLECALCIFEROL 5,000 UNIT TABLET PO SCH (08:31)
[2022-08-03] MEDS: ASCORBIC ACID 500 MG TABLET PO SCH (08:31)
[2022-08-03] MEDS: FERROUS SULFATE 300 MG/5 ML UDCUP PO SCH ×2 (08:31→17:44)
[2022-08-03] MEDS: MULTIVITAMIN (BEROCCA) TABLET PO SCH (08:31)
[2022-08-03] MEDS: POLYETHYLENE GLYCOL POWDER 17 GM PACK PO SCH (08:31)
[2022-08-03] MEDS: SENNA 8.6 MG TABLET PO SCH ×2 (08:31→21:19)
[2022-08-03] MEDS: DEXAMETHASONE 4 MG/1 ML VIAL IV SCH (08:31)
[2022-08-03] MEDS: amLODIPine 5 MG TABLET PO SCH (08:31)
[2022-08-03] MEDS: carvediloL 3.125 MG TABLET PO SCH ×2 (08:31→17:01)
[2022-08-03] MEDS: CALCIUM ACETATE 667 MG CAPSULE PO SCH ×3 (08:31→17:45)
[2022-08-03] MEDS: AZITHROMYCIN 250 MG TABLET PO SCH (08:32)
[2022-08-03] MEDS: ZINC GLUCONATE 50 MG TABLET PO SCH (08:32)
[2022-08-03] MEDS: INSULIN GLARGINE 100 UNIT/ML SUBCUT SCH (09:01)
[2022-08-03 09:17] LABS: Arterial Bicarbonate iSTAT 21.6 MMOL/L (20-26); Arterial pH iSTAT 7.303 (7.35-7.45)
[2022-08-03 13:05] LABS: Risk Ratio 4.58; VLDL Cholesterol 50.8 MG/DL
[2022-08-03] MEDS: MEROPENEM 500 MG in SODIUM CHLORIDE 0.9% 100 ML IV SCH (17:44)
[2022-08-03] MEDS: ENOXAPARIN 30 MG/0.3 ML SYRINGE SUBCUT SCH (21:19)
[2022-08-03] MEDS: cloNIDine 0.1 MG TABLET PO SCH (21:19)
[2022-08-03] MEDS: FAMOTIDINE 20 MG TABLET PO SCH (21:20)
[2022-08-04] MEDS: INSULIN LISPRO 100 UNIT/ML SUBCUT SCH ×5 (00:29→23:42)
[2022-08-04] MEDS: fentaNYL INJ 1,250 MCG in SODIUM CHLORIDE 0.9% 225 ML IV PRN ×2 (02:32→09:20)
[2022-08-04 04:39] LABS: Basophils % 0.1 % (0.0-0.8); Eosinophils % 0.4 % (0.00-10.9); Hematocrit 28.1 VOL% (42.0-52.0); Hemoglobin 8.8 GM/DL (14.0-18.0); Immature Granulocytes % 2.8 %; Immature Granulocytes Absolute 0.28 #; Lymphocytes # 0.2 10*3/uL (1.4-4.0); Lymphocytes % 1.7 % (21.2-54.2); Mean Corpuscular HGB Conc 31.3 GM/DL (32-36); Mean Corpuscular Volume 89.5 FL (87-102); Mean Platelet Volume 9.8 FL (9.6-12.0); Monocytes # 0.3 10*3/uL (0.11-0.8); Monocytes % 2.5 % (1.7-12.7); Neutrophils % 92.5 % (38.7-73.9); Platelet Count 245 T/CUMM (130-400); Red Blood Count 3.14 MC/CUMM (3.8-5.5); Red Cell Distribution Width 14.6 % (9.3-17.3); White Blood Count 9.8 T/CUMM (4-12)
[2022-08-04 04:52] LABS: Calcium 8.4 MG/DL (8.5-10.1); Osmolality,Calculated 304.8 MOS/KG (273-304); Potassium 4.6 MMOL/L (3.5-5.1)
[2022-08-04 05:15] LABS: Lymphocytes 3 % (20-55)
[2022-08-04 05:16] LABS: Anisocytosis 1+; Burr Cells Few; Ovalocytes Few; Poikilocytosis 1+
[2022-08-04 05:17] LABS: Total Cells Counted 100
[2022-08-04] MEDS: METOCLOPRAMIDE 10 MG/2 ML VIAL IV SCH ×3 (06:20→21:02)
[2022-08-04] MEDS: MULTIVITAMIN (BEROCCA) TABLET PO SCH (08:57)
[2022-08-04] MEDS: CALCIUM ACETATE 667 MG CAPSULE PO SCH ×3 (08:57→16:31)
[2022-08-04] MEDS: carvediloL 3.125 MG TABLET PO SCH ×2 (08:57→16:29)
[2022-08-04] MEDS: FERROUS SULFATE 300 MG/5 ML UDCUP PO SCH ×2 (08:57→16:29)
[2022-08-04] MEDS: CHOLECALCIFEROL 5,000 UNIT TABLET PO SCH (08:58)
[2022-08-04] MEDS: POLYETHYLENE GLYCOL POWDER 17 GM PACK PO SCH (08:58)
[2022-08-04] MEDS: DEXAMETHASONE 4 MG/1 ML VIAL IV SCH (08:58)
[2022-08-04] MEDS: MYCOPHENOLATE MOFETIL 250 MG CAPSULE PO SCH ×2 (08:58→20:58)
[2022-08-04] MEDS: ASCORBIC ACID 500 MG TABLET PO SCH (08:58)
[2022-08-04] MEDS: SENNA 8.6 MG TABLET PO SCH ×2 (08:58→20:58)
[2022-08-04] MEDS: AZITHROMYCIN 250 MG TABLET PO SCH (08:58)
[2022-08-04] MEDS: INSULIN GLARGINE 100 UNIT/ML SUBCUT SCH (08:58)
[2022-08-04] MEDS: ZINC GLUCONATE 50 MG TABLET PO SCH (08:58)
[2022-08-04] MEDS: TACROLIMUS 0.5 MG CAPSULE PO SCH ×2 (09:22→20:58)
[2022-08-04] MEDS: MEROPENEM 500 MG in SODIUM CHLORIDE 0.9% 100 ML IV SCH (16:29)
[2022-08-04] MEDS: cloNIDine 0.1 MG TABLET PO SCH (20:58)
[2022-08-04] MEDS: ENOXAPARIN 30 MG/0.3 ML SYRINGE SUBCUT SCH (20:58)
[2022-08-04] MEDS: FAMOTIDINE 20 MG TABLET PO SCH (20:58)
[2022-08-05] MEDS: fentaNYL INJ 1,250 MCG in SODIUM CHLORIDE 0.9% 225 ML IV PRN (04:08)
[2022-08-05 04:57] LABS: Basophils % 0.1 % (0.0-0.8); Eosinophils # 0.1 10*3/uL (0.0-0.87); Eosinophils % 0.6 % (0.00-10.9); Hematocrit 26.5 VOL% (42.0-52.0); Hemoglobin 8.3 GM/DL (14.0-18.0); Immature Granulocytes % 4.2 %; Immature Granulocytes Absolute 0.48 #; Lymphocytes # 0.2 10*3/uL (1.4-4.0); Mean Corpuscular HGB Conc 31.3 GM/DL (32-36); Mean Corpuscular Volume 89.2 FL (87-102); Mean Platelet Volume 9.8 FL (9.6-12.0); Monocytes # 0.4 10*3/uL (0.11-0.8); Monocytes % 3.5 % (1.7-12.7); Neutrophils % 89.6 % (38.7-73.9); Platelet Count 271 T/CUMM (130-400); Red Blood Count 2.97 MC/CUMM (3.8-5.5); Red Cell Distribution Width 14.5 % (9.3-17.3); White Blood Count 11.4 T/CUMM (4-12)
[2022-08-05 05:23] LABS: Albumin 1.4 G/DL (3.4-5.0); Bilirubin,Total 0.4 MG/DL (0.20-1.00); Calcium 8.9 MG/DL (8.5-10.1); Ferritin 369.3 ng/mL (26-388); Osmolality,Calculated 302.4 MOS/KG (273-304); Phosphorous 6.2 MG/DL (2.5-4.9); Potassium 4.7 MMOL/L (3.5-5.1); Total Protein 4.2 G/DL (6.4-8.2)
[2022-08-05] MEDS: INSULIN LISPRO 100 UNIT/ML SUBCUT SCH ×3 (05:27→18:59)
[2022-08-05 05:28] LABS: Lymphocytes 1 % (20-55); Polychromasia Slight; Total Cells Counted 100
[2022-08-05 05:29] LABS: Hypochromia Slight; Microcytosis 1+
[2022-08-05] MEDS: METOCLOPRAMIDE 10 MG/2 ML VIAL IV SCH ×3 (05:52→21:02)
[2022-08-05] MEDS: INSULIN GLARGINE 100 UNIT/ML SUBCUT SCH (09:13)
[2022-08-05] MEDS: FERROUS SULFATE 300 MG/5 ML UDCUP PO SCH ×2 (09:14→18:59)
[2022-08-05] MEDS: MULTIVITAMIN (BEROCCA) TABLET PO SCH (09:14)
[2022-08-05] MEDS: POLYETHYLENE GLYCOL POWDER 17 GM PACK PO SCH (09:14)
[2022-08-05] MEDS: ASCORBIC ACID 500 MG TABLET PO SCH (09:14)
[2022-08-05] MEDS: ZINC GLUCONATE 50 MG TABLET PO SCH (09:14)
[2022-08-05] MEDS: CALCIUM ACETATE 667 MG CAPSULE PO SCH ×3 (09:14→18:59)
[2022-08-05] MEDS: MYCOPHENOLATE MOFETIL 250 MG CAPSULE PO SCH ×2 (09:15→20:53)
[2022-08-05] MEDS: AZITHROMYCIN 250 MG TABLET PO SCH (09:15)
[2022-08-05] MEDS: CHOLECALCIFEROL 5,000 UNIT TABLET PO SCH (09:15)
[2022-08-05] MEDS: DEXAMETHASONE 4 MG/1 ML VIAL IV SCH (09:15)
[2022-08-05] MEDS: carvediloL 3.125 MG TABLET PO SCH ×2 (09:15→18:59)
[2022-08-05] MEDS: TACROLIMUS 0.5 MG CAPSULE PO SCH ×2 (09:15→20:53)
[2022-08-05] MEDS: SENNA 8.6 MG TABLET PO SCH ×2 (09:16→20:53)
[2022-08-05] MEDS ORDERED: PHENOL 1.4% THROAT SPRAY 177 ML BOTTLE PO PRN (10:30)
[2022-08-05 10:31] LABS: Arterial PCO2 iSTAT 50 MM HG (35-48); Arterial PO2 iSTAT 65 MM HG (80-95); Arterial pH iSTAT 7.273 (7.35-7.45)
[2022-08-05 10:32] LABS: Arterial Base Excess iSTAT -4 MMOL/L (-2.5-2.5); Arterial Bicarbonate iSTAT 23.3 MMOL/L (20-26); Arterial O2 Saturation iSTAT 89 % (95-100); Arterial Total CO2 iSTAT 25 MMO/L (23-27)
[2022-08-05] MEDS ORDERED: ALTEPLASE 2 MG VIAL IV PRN (13:28)
[2022-08-05 13:38] LABS: Arterial Base Excess iSTAT -5 MMOL/L (-2.5-2.5); Arterial Bicarbonate iSTAT 21.2 MMOL/L (20-26); Arterial O2 Saturation iSTAT 99 % (95-100); Arterial PCO2 iSTAT 44 MM HG (35-48); Arterial PO2 iSTAT 137 MM HG (80-95); Arterial Total CO2 iSTAT 23 MMO/L (23-27); Arterial pH iSTAT 7.291 (7.35-7.45)
[2022-08-05 13:40] LABS: Arterial pH iSTAT 7.302 (7.35-7.45)
[2022-08-05 13:41] LABS: Arterial Base Excess iSTAT -6 MMOL/L (-2.5-2.5); Arterial Bicarbonate iSTAT 20.5 MMOL/L (20-26); Arterial O2 Saturation iSTAT 98 % (95-100); Arterial PCO2 iSTAT 41 MM HG (35-48); Arterial PO2 iSTAT 118 MM HG (80-95); Arterial Total CO2 iSTAT 22 MMO/L (23-27)
[2022-08-05] MEDS: MEROPENEM 500 MG in SODIUM CHLORIDE 0.9% 100 ML IV SCH (18:45)
[2022-08-05] MEDS: cloNIDine 0.1 MG TABLET PO SCH (20:52)
[2022-08-05] MEDS: ENOXAPARIN 30 MG/0.3 ML SYRINGE SUBCUT SCH (20:52)
[2022-08-05] MEDS: FAMOTIDINE 20 MG TABLET PO SCH (20:53)
[2022-08-06] MEDS: INSULIN LISPRO 100 UNIT/ML SUBCUT SCH ×4 (00:20→17:55)
[2022-08-06] MEDS: fentaNYL INJ 1,250 MCG in SODIUM CHLORIDE 0.9% 225 ML IV PRN ×3 (03:49→21:51)
[2022-08-06 03:59] LABS: Arterial Base Excess iSTAT -3 MMOL/L (-2.5-2.5); Arterial Bicarbonate iSTAT 22.8 MMOL/L (20-26); Arterial O2 Saturation iSTAT 98 % (95-100); Arterial PCO2 iSTAT 44 MM HG (35-48); Arterial PO2 iSTAT 111 MM HG (80-95); Arterial Total CO2 iSTAT 24 MMO/L (23-27); Arterial pH iSTAT 7.318 (7.35-7.45)
[2022-08-06 05:01] LABS: Basophils % 0.1 % (0.0-0.8); Eosinophils # 0.1 10*3/uL (0.0-0.87); Eosinophils % 1.6 % (0.00-10.9); Hematocrit 25.4 VOL% (42.0-52.0); Immature Granulocytes % 4.3 %; Immature Granulocytes Absolute 0.38 #; Lymphocytes # 0.2 10*3/uL (1.4-4.0); Lymphocytes % 2.4 % (21.2-54.2); Mean Corpuscular HGB Conc 31.5 GM/DL (32-36); Mean Corpuscular Volume 90.1 FL (87-102); Monocytes # 0.3 10*3/uL (0.11-0.8); Monocytes % 3.8 % (1.7-12.7); Neutrophils % 87.8 % (38.7-73.9); Platelet Count 260 T/CUMM (130-400); Red Blood Count 2.82 MC/CUMM (3.8-5.5); Red Cell Distribution Width 14.6 % (9.3-17.3); White Blood Count 8.8 T/CUMM (4-12)
[2022-08-06 05:22] LABS: Eosinophils 1 % (0-10); Lymphocytes 2 % (20-55); Total Cells Counted 100
[2022-08-06 05:23] LABS: Hypochromia Slight; Microcytosis Slight; Platelet Estimate Adequate
[2022-08-06 05:33] LABS: Albumin 1.4 G/DL (3.4-5.0); Bilirubin,Total 0.4 MG/DL (0.20-1.00); Calcium 8.9 MG/DL (8.5-10.1); Osmolality,Calculated 297.1 MOS/KG (273-304); Phosphorous 5.7 MG/DL (2.5-4.9); Potassium 4.4 MMOL/L (3.5-5.1); Total Protein 4.6 G/DL (6.4-8.2)
[2022-08-06] MEDS: METOCLOPRAMIDE 10 MG/2 ML VIAL IV SCH ×3 (06:22→21:48)
[2022-08-06] MEDS: INSULIN GLARGINE 100 UNIT/ML SUBCUT SCH (08:45)
[2022-08-06] MEDS: FERROUS SULFATE 300 MG/5 ML UDCUP PO SCH ×2 (08:46→17:54)
[2022-08-06] MEDS: POLYETHYLENE GLYCOL POWDER 17 GM PACK PO SCH (08:46)
[2022-08-06] MEDS: MULTIVITAMIN (BEROCCA) TABLET PO SCH (08:48)
[2022-08-06] MEDS: CALCIUM ACETATE 667 MG CAPSULE PO SCH ×3 (08:48→17:54)
[2022-08-06] MEDS: DEXAMETHASONE 4 MG/1 ML VIAL IV SCH (08:48)
[2022-08-06] MEDS: ASCORBIC ACID 500 MG TABLET PO SCH (08:49)
[2022-08-06] MEDS: CHOLECALCIFEROL 5,000 UNIT TABLET PO SCH (08:49)
[2022-08-06] MEDS: SENNA 8.6 MG TABLET PO SCH ×2 (08:49→21:48)
[2022-08-06] MEDS: carvediloL 3.125 MG TABLET PO SCH ×2 (08:49→17:54)
[2022-08-06] MEDS: ZINC GLUCONATE 50 MG TABLET PO SCH (08:49)
[2022-08-06] MEDS: TACROLIMUS 0.5 MG CAPSULE PO SCH ×2 (08:49→21:47)
[2022-08-06] MEDS: AZITHROMYCIN 250 MG TABLET PO SCH (08:49)
[2022-08-06] MEDS: MYCOPHENOLATE MOFETIL 250 MG CAPSULE PO SCH ×2 (08:49→21:48)
[2022-08-06] MEDS: MEROPENEM 500 MG in SODIUM CHLORIDE 0.9% 100 ML IV SCH (17:55)
[2022-08-06] MEDS: ENOXAPARIN 60 MG/0.6 ML SYRINGE SUBCUT SCH (21:48)
[2022-08-06] MEDS: FAMOTIDINE 20 MG TABLET PO SCH (21:48)
[2022-08-06] MEDS: cloNIDine 0.1 MG TABLET PO SCH (21:48)
[2022-08-07] MEDS: INSULIN LISPRO 100 UNIT/ML SUBCUT SCH ×4 (01:25→18:17)
[2022-08-07 05:08] LABS: Eosinophils # 0.2 10*3/uL (0.0-0.87); Eosinophils % 2.9 % (0.00-10.9); Hematocrit 25.3 VOL% (42.0-52.0); Hemoglobin 8.1 GM/DL (14.0-18.0); Immature Granulocytes % 4.6 %; Immature Granulocytes Absolute 0.33 #; Lymphocytes # 0.2 10*3/uL (1.4-4.0); Lymphocytes % 2.9 % (21.2-54.2); Mean Corpuscular Volume 89.7 FL (87-102); Mean Platelet Volume 9.7 FL (9.6-12.0); Monocytes # 0.4 10*3/uL (0.11-0.8); Monocytes % 5.7 % (1.7-12.7); Neutrophils % 83.9 % (38.7-73.9); Platelet Count 262 T/CUMM (130-400); Red Blood Count 2.82 MC/CUMM (3.8-5.5); Red Cell Distribution Width 14.6 % (9.3-17.3); White Blood Count 7.2 T/CUMM (4-12)
[2022-08-07 05:29] LABS: Albumin 1.4 G/DL (3.4-5.0); Bilirubin,Total 0.4 MG/DL (0.20-1.00); Calcium 9.5 MG/DL (8.5-10.1); Osmolality,Calculated 299.5 MOS/KG (273-304); Potassium 4.7 MMOL/L (3.5-5.1); Total Protein 4.6 G/DL (6.4-8.2)
[2022-08-07 05:34] LABS: Band Neutrophils 2 % (0-10); Eosinophils 3 % (0-10); Lymphocytes 6 % (20-55); Total Cells Counted 100
[2022-08-07 05:35] LABS: Hypochromia Slight; Microcytosis 1+; Ovalocytes Slight; Platelet Estimate Normal; Polychromasia Slight
[2022-08-07] MEDS: METOCLOPRAMIDE 10 MG/2 ML VIAL IV SCH ×3 (05:57→21:16)
[2022-08-07] MEDS: fentaNYL INJ 1,250 MCG in SODIUM CHLORIDE 0.9% 225 ML IV PRN ×2 (06:44→18:13)
[2022-08-07] MEDS: carvediloL 3.125 MG TABLET PO SCH ×2 (09:36→16:51)
[2022-08-07] MEDS: FERROUS SULFATE 300 MG/5 ML UDCUP PO SCH ×2 (09:36→16:51)
[2022-08-07] MEDS: MYCOPHENOLATE MOFETIL 250 MG CAPSULE PO SCH ×2 (09:36→20:32)
[2022-08-07] MEDS: CALCIUM ACETATE 667 MG CAPSULE PO SCH ×3 (09:36→16:51)
[2022-08-07] MEDS: MULTIVITAMIN (BEROCCA) TABLET PO SCH (09:36)
[2022-08-07] MEDS: DEXAMETHASONE 4 MG/1 ML VIAL IV SCH (09:37)
[2022-08-07] MEDS: ENOXAPARIN 60 MG/0.6 ML SYRINGE SUBCUT SCH ×2 (09:37→20:31)
[2022-08-07] MEDS: POLYETHYLENE GLYCOL POWDER 17 GM PACK PO SCH (09:37)
[2022-08-07] MEDS: ZINC GLUCONATE 50 MG TABLET PO SCH (09:39)
[2022-08-07] MEDS: CHOLECALCIFEROL 5,000 UNIT TABLET PO SCH (09:39)
[2022-08-07] MEDS: TACROLIMUS 0.5 MG CAPSULE PO SCH ×2 (09:39→20:32)
[2022-08-07] MEDS: SENNA 8.6 MG TABLET PO SCH ×2 (09:39→20:32)
[2022-08-07] MEDS: ASCORBIC ACID 500 MG TABLET PO SCH (09:39)
[2022-08-07] MEDS: AZITHROMYCIN 250 MG TABLET PO SCH (09:39)
[2022-08-07] MEDS: INSULIN GLARGINE 100 UNIT/ML SUBCUT SCH (10:58)
[2022-08-07 12:21] LABS: Arterial Base Excess iSTAT -7 MMOL/L (-2.5-2.5); Arterial Bicarbonate iSTAT 19.2 MMOL/L (20-26); Arterial PCO2 iSTAT 41 MM HG (35-48); Arterial PO2 iSTAT 123 MM HG (80-95); Arterial pH iSTAT 7.283 (7.35-7.45)
[2022-08-07 12:22] LABS: Arterial O2 Saturation iSTAT 98 % (95-100); Arterial Total CO2 iSTAT 20 MMO/L (23-27)
[2022-08-07] MEDS: MEROPENEM 500 MG in SODIUM CHLORIDE 0.9% 100 ML IV SCH (16:51)
[2022-08-07] MEDS: FAMOTIDINE 20 MG TABLET PO SCH (20:32)
[2022-08-07] MEDS: cloNIDine 0.1 MG TABLET PO SCH (20:32)
[2022-08-08] MEDS: INSULIN LISPRO 100 UNIT/ML SUBCUT SCH ×5 (00:20→23:36)
[2022-08-08 03:15] LABS: Arterial Base Excess iSTAT -7 MMOL/L (-2.5-2.5); Arterial Bicarbonate iSTAT 17.9 MMOL/L (20-26); Arterial O2 Saturation iSTAT 97 % (95-100); Arterial PCO2 iSTAT 33 MM HG (35-48); Arterial PO2 iSTAT 93 MM HG (80-95); Arterial Total CO2 iSTAT 19 MMO/L (23-27); Arterial pH iSTAT 7.339 (7.35-7.45)
[2022-08-08 03:31] LABS: Basophils % 0.3 % (0.0-0.8); Eosinophils # 0.2 10*3/uL (0.0-0.87); Eosinophils % 3.2 % (0.00-10.9); Hematocrit 26.6 VOL% (42.0-52.0); Hemoglobin 8.5 GM/DL (14.0-18.0); Immature Granulocytes % 3.9 %; Immature Granulocytes Absolute 0.27 #; Lymphocytes # 0.2 10*3/uL (1.4-4.0); Lymphocytes % 2.8 % (21.2-54.2); Mean Corpuscular Volume 89.9 FL (87-102); Mean Platelet Volume 9.9 FL (9.6-12.0); Monocytes # 0.4 10*3/uL (0.11-0.8); Monocytes % 5.5 % (1.7-12.7); Neutrophils % 84.3 % (38.7-73.9); Platelet Count 282 T/CUMM (130-400); Red Blood Count 2.96 MC/CUMM (3.8-5.5); Red Cell Distribution Width 14.7 % (9.3-17.3); White Blood Count 6.9 T/CUMM (4-12)
[2022-08-08 03:38] LABS: Albumin 1.3 G/DL (3.4-5.0); Bilirubin,Total 0.4 MG/DL (0.20-1.00); Calcium 8.9 MG/DL (8.5-10.1); Potassium 4.5 MMOL/L (3.5-5.1); Total Protein 4.7 G/DL (6.4-8.2)
[2022-08-08 04:13] LABS: Acanthocytes Few; Eosinophils 6 % (0-10); Lymphocytes 3 % (20-55); Microcytosis 1+; Polychromasia Slight; Total Cells Counted 100
[2022-08-08 04:14] LABS: Ovalocytes Slight; Platelet Estimate Normal
[2022-08-08 04:15] LABS: Burr Cells Slight
[2022-08-08] MEDS: METOCLOPRAMIDE 10 MG/2 ML VIAL IV SCH ×3 (05:50→21:33)
[2022-08-08] MEDS: fentaNYL INJ 1,250 MCG in SODIUM CHLORIDE 0.9% 225 ML IV PRN ×2 (06:41→17:23)
[2022-08-08] MEDS: MYCOPHENOLATE MOFETIL 250 MG CAPSULE PO SCH ×2 (08:16→20:24)
[2022-08-08] MEDS: carvediloL 3.125 MG TABLET PO SCH ×2 (08:16→16:42)
[2022-08-08] MEDS: POLYETHYLENE GLYCOL POWDER 17 GM PACK PO SCH (08:16)
[2022-08-08] MEDS: DEXAMETHASONE 4 MG/1 ML VIAL IV SCH (08:16)
[2022-08-08] MEDS: ENOXAPARIN 60 MG/0.6 ML SYRINGE SUBCUT SCH ×2 (08:16→20:24)
[2022-08-08] MEDS: MULTIVITAMIN (BEROCCA) TABLET PO SCH (08:16)
[2022-08-08] MEDS: FERROUS SULFATE 300 MG/5 ML UDCUP PO SCH ×2 (08:16→16:42)
[2022-08-08] MEDS: CALCIUM ACETATE 667 MG CAPSULE PO SCH ×3 (08:16→16:42)
[2022-08-08] MEDS: METOPROLOL TARTRATE 5 MG/5 ML VIAL IV PRN (08:18)
[2022-08-08] MEDS: TACROLIMUS 0.5 MG CAPSULE PO SCH ×2 (08:19→20:28)
[2022-08-08] MEDS: SENNA 8.6 MG TABLET PO SCH ×2 (08:20→20:24)
[2022-08-08] MEDS: CHOLECALCIFEROL 5,000 UNIT TABLET PO SCH (08:20)
[2022-08-08] MEDS: ASCORBIC ACID 500 MG TABLET PO SCH (08:20)
[2022-08-08] MEDS: MORPHINE 2 MG/1 ML SYRINGE IV PRN (08:20)
[2022-08-08] MEDS: ZINC GLUCONATE 50 MG TABLET PO SCH (08:20)
[2022-08-08] MEDS: amLODIPine 5 MG TABLET PO SCH (09:54)
[2022-08-08] MEDS: INSULIN GLARGINE 100 UNIT/ML SUBCUT SCH (10:03)
[2022-08-08] MEDS: cloNIDine 0.1 MG TABLET PO SCH (20:24)
[2022-08-08] MEDS: FAMOTIDINE 20 MG TABLET PO SCH (20:24)
[2022-08-09] MEDS: fentaNYL INJ 1,250 MCG in SODIUM CHLORIDE 0.9% 225 ML IV PRN ×3 (01:32→19:58)
[2022-08-09 03:22] LABS: Arterial Base Excess iSTAT -5 MMOL/L (-2.5-2.5); Arterial Bicarbonate iSTAT 20.7 MMOL/L (20-26); Arterial O2 Saturation iSTAT 99 % (95-100); Arterial PCO2 iSTAT 38 MM HG (35-48); Arterial PO2 iSTAT 129 MM HG (80-95); Arterial Total CO2 iSTAT 22 MMO/L (23-27); Arterial pH iSTAT 7.344 (7.35-7.45)
[2022-08-09 03:30] LABS: Basophils % 0.2 % (0.0-0.8); Eosinophils # 0.3 10*3/uL (0.0-0.87); Eosinophils % 4.4 % (0.00-10.9); Hematocrit 27.6 VOL% (42.0-52.0); Hemoglobin 8.6 GM/DL (14.0-18.0); Immature Granulocytes % 2.2 %; Immature Granulocytes Absolute 0.13 #; Lymphocytes # 0.2 10*3/uL (1.4-4.0); Lymphocytes % 3.9 % (21.2-54.2); Mean Corpuscular HGB Conc 31.2 GM/DL (32-36); Mean Corpuscular Volume 88.7 FL (87-102); Mean Platelet Volume 9.9 FL (9.6-12.0); Monocytes # 0.4 10*3/uL (0.11-0.8); Monocytes % 6.3 % (1.7-12.7); Platelet Count 314 T/CUMM (130-400); Red Blood Count 3.11 MC/CUMM (3.8-5.5); Red Cell Distribution Width 15.1 % (9.3-17.3); White Blood Count 5.9 T/CUMM (4-12)
[2022-08-09 03:46] LABS: Albumin 1.4 G/DL (3.4-5.0); Bilirubin,Total 0.4 MG/DL (0.20-1.00); Calcium 9.8 MG/DL (8.5-10.1); Osmolality,Calculated 297.5 MOS/KG (273-304); Potassium 4.6 MMOL/L (3.5-5.1); Total Protein 4.7 G/DL (6.4-8.2)
[2022-08-09 04:08] LABS: Burr Cells 1+; Eosinophils 5 % (0-10); Lymphocytes 3 % (20-55); Total Cells Counted 100
[2022-08-09 04:09] LABS: Platelet Estimate Normal; Polychromasia Slight
[2022-08-09] MEDS: METOCLOPRAMIDE 10 MG/2 ML VIAL IV SCH ×3 (05:49→21:21)
[2022-08-09] MEDS: INSULIN LISPRO 100 UNIT/ML SUBCUT SCH ×3 (05:49→18:15)
[2022-08-09] MEDS: carvediloL 3.125 MG TABLET PO SCH ×2 (09:07→16:35)
[2022-08-09] MEDS: amLODIPine 5 MG TABLET PO SCH ×2 (09:08→14:15)
[2022-08-09] MEDS: INSULIN GLARGINE 100 UNIT/ML SUBCUT SCH (09:24)
[2022-08-09] MEDS: FERROUS SULFATE 300 MG/5 ML UDCUP PO SCH ×2 (09:25→16:35)
[2022-08-09] MEDS: POLYETHYLENE GLYCOL POWDER 17 GM PACK PO SCH (09:25)
[2022-08-09] MEDS: ENOXAPARIN 60 MG/0.6 ML SYRINGE SUBCUT SCH ×2 (09:26→21:21)
[2022-08-09] MEDS: methylPREDNISolone SOD SUC 40 MG/1 ML VIAL IV SCH ×2 (09:26→16:35)
[2022-08-09] MEDS: CHOLECALCIFEROL 5,000 UNIT TABLET PO SCH (09:27)
[2022-08-09] MEDS: TACROLIMUS 0.5 MG CAPSULE PO SCH ×2 (09:27→21:22)
[2022-08-09] MEDS: CALCIUM ACETATE 667 MG CAPSULE PO SCH ×3 (09:27→16:35)
[2022-08-09] MEDS: ASCORBIC ACID 500 MG TABLET PO SCH (09:27)
[2022-08-09] MEDS: MYCOPHENOLATE MOFETIL 250 MG CAPSULE PO SCH ×2 (09:27→21:22)
[2022-08-09] MEDS: MULTIVITAMIN (BEROCCA) TABLET PO SCH (09:27)
[2022-08-09] MEDS: ZINC GLUCONATE 50 MG TABLET PO SCH (09:27)
[2022-08-09] MEDS: SENNA 8.6 MG TABLET PO SCH ×2 (09:27→21:22)
[2022-08-09] MEDS: FAMOTIDINE 20 MG TABLET PO SCH (21:22)
[2022-08-09] MEDS: cloNIDine 0.1 MG TABLET PO SCH (21:22)
[2022-08-10] MEDS: INSULIN LISPRO 100 UNIT/ML SUBCUT SCH ×5 (00:43→23:27)
[2022-08-10] MEDS: methylPREDNISolone SOD SUC 40 MG/1 ML VIAL IV SCH ×3 (00:44→16:22)
[2022-08-10 03:16] LABS: Arterial Base Excess iSTAT -5 MMOL/L (-2.5-2.5); Arterial Bicarbonate iSTAT 21.5 MMOL/L (20-26); Arterial O2 Saturation iSTAT 95 % (95-100); Arterial PCO2 iSTAT 46 MM HG (35-48); Arterial PO2 iSTAT 87 MM HG (80-95); Arterial Total CO2 iSTAT 23 MMO/L (23-27); Arterial pH iSTAT 7.282 (7.35-7.45)
[2022-08-10 03:30] LABS: Basophils % 0.3 % (0.0-0.8); Hematocrit 26.9 VOL% (42.0-52.0); Hemoglobin 8.4 GM/DL (14.0-18.0); Immature Granulocytes Absolute 0.07 #; Lymphocytes # 0.1 10*3/uL (1.4-4.0); Lymphocytes % 1.8 % (21.2-54.2); Mean Corpuscular HGB Conc 31.2 GM/DL (32-36); Mean Corpuscular Volume 90.3 FL (87-102); Monocytes # 0.2 10*3/uL (0.11-0.8); Monocytes % 3.3 % (1.7-12.7); Neutrophils % 93.6 % (38.7-73.9); Platelet Count 304 T/CUMM (130-400); Red Blood Count 2.98 MC/CUMM (3.8-5.5); White Blood Count 7.3 T/CUMM (4-12)
[2022-08-10 03:52] LABS: Hypochromia Slight; Lymphocytes 2 % (20-55); Microcytosis Slight; Platelet Estimate Adequate; Total Cells Counted 100
[2022-08-10 04:01] LABS: Albumin 1.4 G/DL (3.4-5.0); Bilirubin,Total 0.4 MG/DL (0.20-1.00); Calcium 9.4 MG/DL (8.5-10.1); Osmolality,Calculated 294.2 MOS/KG (273-304); Potassium 5.5 MMOL/L (3.5-5.1); Total Protein 4.9 G/DL (6.4-8.2)
[2022-08-10] MEDS: fentaNYL INJ 1,250 MCG in SODIUM CHLORIDE 0.9% 225 ML IV PRN ×3 (04:06→21:44)
[2022-08-10] MEDS: METOCLOPRAMIDE 10 MG/2 ML VIAL IV SCH ×3 (06:20→21:15)
[2022-08-10] MEDS: FERROUS SULFATE 300 MG/5 ML UDCUP PO SCH ×2 (08:04→16:23)
[2022-08-10] MEDS: POLYETHYLENE GLYCOL POWDER 17 GM PACK PO SCH (08:05)
[2022-08-10] MEDS: ENOXAPARIN 60 MG/0.6 ML SYRINGE SUBCUT SCH ×2 (08:06→20:16)
[2022-08-10] MEDS: ZINC GLUCONATE 50 MG TABLET PO SCH (08:07)
[2022-08-10] MEDS: MULTIVITAMIN (BEROCCA) TABLET PO SCH (08:07)
[2022-08-10] MEDS: TACROLIMUS 0.5 MG CAPSULE PO SCH ×2 (08:07→20:16)
[2022-08-10] MEDS: MYCOPHENOLATE MOFETIL 250 MG CAPSULE PO SCH ×2 (08:07→20:17)
[2022-08-10] MEDS: CALCIUM ACETATE 667 MG CAPSULE PO SCH ×3 (08:07→16:22)
[2022-08-10] MEDS: SENNA 8.6 MG TABLET PO SCH ×2 (08:08→20:17)
[2022-08-10] MEDS: carvediloL 3.125 MG TABLET PO SCH ×2 (08:08→16:23)
[2022-08-10] MEDS: ASCORBIC ACID 500 MG TABLET PO SCH (08:08)
[2022-08-10] MEDS: CHOLECALCIFEROL 5,000 UNIT TABLET PO SCH (08:08)
[2022-08-10] MEDS: amLODIPine 5 MG TABLET PO SCH (08:08)
[2022-08-10] MEDS: INSULIN GLARGINE 100 UNIT/ML SUBCUT SCH (08:15)
[2022-08-10] MEDS: cloNIDine 0.1 MG TABLET PO SCH (20:16)
[2022-08-10] MEDS: FAMOTIDINE 20 MG TABLET PO SCH (20:16)
[2022-08-11] MEDS: methylPREDNISolone SOD SUC 40 MG/1 ML VIAL IV SCH ×3 (00:16→16:22)
[2022-08-11 03:29] LABS: Arterial Base Excess iSTAT -7 MMOL/L (-2.5-2.5); Arterial Bicarbonate iSTAT 20.4 MMOL/L (20-26); Arterial O2 Saturation iSTAT 97 % (95-100); Arterial PCO2 iSTAT 46 MM HG (35-48); Arterial PO2 iSTAT 102 MM HG (80-95); Arterial Total CO2 iSTAT 22 MMO/L (23-27); Arterial pH iSTAT 7.252 (7.35-7.45)
[2022-08-11 03:47] LABS: Basophils % 0.3 % (0.0-0.8); Eosinophils % 0.2 % (0.00-10.9); Hematocrit 27.5 VOL% (42.0-52.0); Hemoglobin 8.7 GM/DL (14.0-18.0); Immature Granulocytes % 0.8 %; Immature Granulocytes Absolute 0.08 #; Lymphocytes # 0.1 10*3/uL (1.4-4.0); Mean Corpuscular HGB Conc 31.6 GM/DL (32-36); Mean Corpuscular Volume 91.1 FL (87-102); Monocytes # 0.2 10*3/uL (0.11-0.8); Neutrophils % 95.7 % (38.7-73.9); Platelet Count 362 T/CUMM (130-400); Red Blood Count 3.02 MC/CUMM (3.8-5.5); Red Cell Distribution Width 15.1 % (9.3-17.3); White Blood Count 9.93 T/CUMM (4-12)
[2022-08-11 04:09] LABS: Albumin 1.6 G/DL (3.4-5.0); Bilirubin,Total 0.4 MG/DL (0.20-1.00); Calcium 9.6 MG/DL (8.5-10.1); Osmolality,Calculated 300.4 MOS/KG (273-304); Potassium 5.8 MMOL/L (3.5-5.1); Total Protein 4.6 G/DL (6.4-8.2)
[2022-08-11 04:12] LABS: Band Neutrophils 1 % (0-10); Hypochromia Slight; Lymphocytes 2 % (20-55); Platelet Estimate Normal; Total Cells Counted 100
[2022-08-11] MEDS: INSULIN LISPRO 100 UNIT/ML SUBCUT SCH ×4 (05:10→23:18)
[2022-08-11] MEDS: fentaNYL INJ 1,250 MCG in SODIUM CHLORIDE 0.9% 225 ML IV PRN ×2 (06:05→19:16)
[2022-08-11] MEDS: METOCLOPRAMIDE 10 MG/2 ML VIAL IV SCH ×3 (06:06→21:05)
[2022-08-11] MEDS: ENOXAPARIN 60 MG/0.6 ML SYRINGE SUBCUT SCH (08:19)
[2022-08-11] MEDS: FERROUS SULFATE 300 MG/5 ML UDCUP PO SCH ×2 (08:19→16:22)
[2022-08-11] MEDS: CALCIUM ACETATE 667 MG CAPSULE PO SCH ×3 (08:20→16:22)
[2022-08-11] MEDS: CHOLECALCIFEROL 5,000 UNIT TABLET PO SCH (08:20)
[2022-08-11] MEDS: SENNA 8.6 MG TABLET PO SCH ×2 (08:20→21:05)
[2022-08-11] MEDS: MULTIVITAMIN (BEROCCA) TABLET PO SCH (08:20)
[2022-08-11] MEDS: TACROLIMUS 0.5 MG CAPSULE PO SCH ×2 (08:20→21:05)
[2022-08-11] MEDS: amLODIPine 5 MG TABLET PO SCH (08:20)
[2022-08-11] MEDS: ZINC GLUCONATE 50 MG TABLET PO SCH (08:20)
[2022-08-11] MEDS: carvediloL 3.125 MG TABLET PO SCH ×2 (08:20→16:22)
[2022-08-11] MEDS: MYCOPHENOLATE MOFETIL 250 MG CAPSULE PO SCH ×2 (08:20→21:06)
[2022-08-11] MEDS: POLYETHYLENE GLYCOL POWDER 17 GM PACK PO SCH (08:21)
[2022-08-11] MEDS: ASCORBIC ACID 500 MG TABLET PO SCH (08:21)
[2022-08-11] MEDS ORDERED: SODIUM POLYSTYRENE SULFATE 15 GM/60 ML BOTTLE PO ONE (08:29)
[2022-08-11] MEDS: FLUCONAZOLE 200 MG TABLET PO SCH (10:36)
[2022-08-11] MEDS: INSULIN GLARGINE 100 UNIT/ML SUBCUT SCH (10:37)
[2022-08-11] MEDS: METOPROLOL TARTRATE 5 MG/5 ML VIAL IV PRN (11:23)
[2022-08-11] MEDS: diphenhydrAMINE 25 MG/10 ML UDCUP PO PRN ×2 (13:59→21:05)
[2022-08-11] MEDS: cloNIDine 0.1 MG TABLET PO SCH (21:05)
[2022-08-11] MEDS: FAMOTIDINE 20 MG TABLET PO SCH (21:05)
[2022-08-11] MEDS: APIXABAN 2.5 MG TABLET PO SCH (21:05)
[2022-08-12] MEDS: methylPREDNISolone SOD SUC 40 MG/1 ML VIAL IV SCH ×4 (00:28→23:54)
[2022-08-12 03:35] LABS: Arterial Base Excess iSTAT -6 MMOL/L (-2.5-2.5); Arterial Bicarbonate iSTAT 19.8 MMOL/L (20-26); Arterial O2 Saturation iSTAT 98 % (95-100); Arterial PCO2 iSTAT 41 MM HG (35-48); Arterial PO2 iSTAT 115 MM HG (80-95); Arterial Total CO2 iSTAT 21 MMO/L (23-27); Arterial pH iSTAT 7.288 (7.35-7.45)
[2022-08-12 03:51] LABS: Basophils % 0.3 % (0.0-0.8); Eosinophils % 0.1 % (0.00-10.9); Hematocrit 25.9 VOL% (42.0-52.0); Hemoglobin 8.1 GM/DL (14.0-18.0); Immature Granulocytes % 0.6 %; Immature Granulocytes Absolute 0.05 #; Lymphocytes # 0.1 10*3/uL (1.4-4.0); Lymphocytes % 1.1 % (21.2-54.2); Mean Corpuscular HGB Conc 31.3 GM/DL (32-36); Mean Corpuscular Volume 90.2 FL (87-102); Mean Platelet Volume 9.9 FL (9.6-12.0); Monocytes # 0.2 10*3/uL (0.11-0.8); Monocytes % 2.4 % (1.7-12.7); Neutrophils % 95.5 % (38.7-73.9); Platelet Count 355 T/CUMM (130-400); Red Blood Count 2.87 MC/CUMM (3.8-5.5); Red Cell Distribution Width 15.1 % (9.3-17.3); White Blood Count 8.86 T/CUMM (4-12)
[2022-08-12 04:14] LABS: Lymphocytes 1 % (20-55); Platelet Estimate Adequate; Total Cells Counted 100
[2022-08-12 04:43] LABS: Albumin 1.6 G/DL (3.4-5.0); Bilirubin,Total 0.4 MG/DL (0.20-1.00); Calcium 9.1 MG/DL (8.5-10.1); Osmolality,Calculated 304.4 MOS/KG (273-304); Phosphorous 8.6 MG/DL (2.5-4.9); Potassium 5.9 MMOL/L (3.5-5.1); Total Protein 4.3 G/DL (6.4-8.2)
[2022-08-12] MEDS: METOCLOPRAMIDE 10 MG/2 ML VIAL IV SCH ×3 (05:06→21:25)
[2022-08-12] MEDS: INSULIN LISPRO 100 UNIT/ML SUBCUT SCH ×4 (05:07→23:58)
[2022-08-12] MEDS: APIXABAN 2.5 MG TABLET PO SCH ×2 (08:29→20:19)
[2022-08-12] MEDS: amLODIPine 5 MG TABLET PO SCH (08:29)
[2022-08-12] MEDS: FERROUS SULFATE 300 MG/5 ML UDCUP PO SCH ×2 (08:29→16:52)
[2022-08-12] MEDS: TACROLIMUS 0.5 MG CAPSULE PO SCH ×2 (08:29→20:19)
[2022-08-12] MEDS: FLUCONAZOLE 200 MG TABLET PO SCH (08:29)
[2022-08-12] MEDS: POLYETHYLENE GLYCOL POWDER 17 GM PACK PO SCH (08:29)
[2022-08-12] MEDS: CALCIUM ACETATE 667 MG CAPSULE PO SCH ×3 (08:29→16:52)
[2022-08-12] MEDS: MULTIVITAMIN (BEROCCA) TABLET PO SCH (08:29)
[2022-08-12] MEDS: carvediloL 3.125 MG TABLET PO SCH ×2 (08:29→16:52)
[2022-08-12] MEDS: MYCOPHENOLATE MOFETIL 250 MG CAPSULE PO SCH ×2 (08:29→20:19)
[2022-08-12] MEDS: CHOLECALCIFEROL 5,000 UNIT TABLET PO SCH (08:30)
[2022-08-12] MEDS: ASCORBIC ACID 500 MG TABLET PO SCH (08:30)
[2022-08-12] MEDS: SENNA 8.6 MG TABLET PO SCH ×2 (08:30→20:15)
[2022-08-12] MEDS: ZINC GLUCONATE 50 MG TABLET PO SCH (08:30)
[2022-08-12] MEDS: fentaNYL INJ 2,500 MCG in SODIUM CHLORIDE 0.9% 75 ML IV PRN (08:31)
[2022-08-12] MEDS: INSULIN GLARGINE 100 UNIT/ML SUBCUT SCH (10:27)
[2022-08-12] MEDS: METOPROLOL TARTRATE 5 MG/5 ML VIAL IV PRN ×2 (10:27→16:53)
[2022-08-12] MEDS ORDERED: SODIUM ZIRCONIUM CYCLOSILICATE 10 GM PACK PO ONE (11:37)
[2022-08-12] MEDS: cloNIDine 0.1 MG TABLET PO SCH (20:15)
[2022-08-12] MEDS: FAMOTIDINE 20 MG TABLET PO SCH (20:19)
[2022-08-13] MEDS: hydrALAZINE 20 MG/1 ML VIAL IV PRN ×3 (03:07→18:16)
[2022-08-13 04:03] LABS: Arterial Base Excess iSTAT -2 MMOL/L (-2.5-2.5); Arterial Bicarbonate iSTAT 23.1 MMOL/L (20-26); Arterial O2 Saturation iSTAT 98 % (95-100); Arterial PCO2 iSTAT 40 MM HG (35-48); Arterial PO2 iSTAT 115 MM HG (80-95); Arterial Total CO2 iSTAT 24 MMO/L (23-27); Arterial pH iSTAT 7.374 (7.35-7.45)
[2022-08-13 05:01] LABS: Basophils % 0.2 % (0.0-0.8); Eosinophils % 0.1 % (0.00-10.9); Hematocrit 27.6 VOL% (42.0-52.0); Hemoglobin 8.8 GM/DL (14.0-18.0); Immature Granulocytes % 1.1 %; Lymphocytes # 0.1 10*3/uL (1.4-4.0); Lymphocytes % 1.4 % (21.2-54.2); Mean Corpuscular HGB Conc 31.9 GM/DL (32-36); Mean Corpuscular Volume 88.5 FL (87-102); Mean Platelet Volume 9.9 FL (9.6-12.0); Monocytes # 0.3 10*3/uL (0.11-0.8); Monocytes % 3.6 % (1.7-12.7); Neutrophils % 93.6 % (38.7-73.9); Platelet Count 427 T/CUMM (130-400); Red Blood Count 3.12 MC/CUMM (3.8-5.5); Red Cell Distribution Width 15.2 % (9.3-17.3); White Blood Count 8.99 T/CUMM (4-12)
[2022-08-13] MEDS: METOCLOPRAMIDE 10 MG/2 ML VIAL IV SCH ×3 (05:31→23:46)
[2022-08-13 05:35] LABS: Albumin 1.7 G/DL (3.4-5.0); Bilirubin,Total 0.4 MG/DL (0.20-1.00); Calcium 9.4 MG/DL (8.5-10.1); Osmolality,Calculated 286.9 MOS/KG (273-304); Potassium 4.6 MMOL/L (3.5-5.1); Total Protein 5.2 G/DL (6.4-8.2)
[2022-08-13] MEDS: INSULIN LISPRO 100 UNIT/ML SUBCUT SCH ×3 (05:36→18:05)
[2022-08-13 05:38] LABS: Band Neutrophils 1 % (0-10); Hypochromia Slight; Lymphocytes 1 % (20-55); Microcytosis Slight; Ovalocytes Slight; Tear Drop Cells Slight; Total Cells Counted 100
[2022-08-13 05:39] LABS: Platelet Estimate Normal
[2022-08-13] MEDS: FLUCONAZOLE 200 MG TABLET PO SCH (08:17)
[2022-08-13] MEDS: FERROUS SULFATE 300 MG/5 ML UDCUP PO SCH ×2 (08:17→17:55)
[2022-08-13] MEDS: MYCOPHENOLATE MOFETIL 250 MG CAPSULE PO SCH ×2 (08:17→23:49)
[2022-08-13] MEDS: carvediloL 3.125 MG TABLET PO SCH ×2 (08:17→17:55)
[2022-08-13] MEDS: methylPREDNISolone SOD SUC 40 MG/1 ML VIAL IV SCH ×3 (08:17→23:46)
[2022-08-13] MEDS: MULTIVITAMIN (BEROCCA) TABLET PO SCH (08:17)
[2022-08-13] MEDS: CALCIUM ACETATE 667 MG CAPSULE PO SCH ×3 (08:17→17:55)
[2022-08-13] MEDS: CHOLECALCIFEROL 5,000 UNIT TABLET PO SCH (08:18)
[2022-08-13] MEDS: APIXABAN 2.5 MG TABLET PO SCH ×2 (08:18→23:52)
[2022-08-13] MEDS: SENNA 8.6 MG TABLET PO SCH ×2 (08:18→23:52)
[2022-08-13] MEDS: ZINC GLUCONATE 50 MG TABLET PO SCH (08:18)
[2022-08-13] MEDS: TACROLIMUS 0.5 MG CAPSULE PO SCH ×2 (08:18→23:52)
[2022-08-13] MEDS: POLYETHYLENE GLYCOL POWDER 17 GM PACK PO SCH (08:18)
[2022-08-13] MEDS: ASCORBIC ACID 500 MG TABLET PO SCH (08:18)
[2022-08-13] MEDS: amLODIPine 5 MG TABLET PO SCH (08:18)
[2022-08-13] MEDS ORDERED: MIDAZOLAM 2 MG/2 ML VIAL ONE (08:24)
[2022-08-13] MEDS ORDERED: fentaNYL 100 MCG/2 ML VIAL ONE (08:24)
[2022-08-13] MEDS ORDERED: BUPIVACAINE MPF 0.25% 10 ML VIAL ONE (08:30)
[2022-08-13] MEDS ORDERED: LIDOCAINE 1%/EPI INJ 20 ML VIAL ONE (08:30)
[2022-08-13] MEDS ORDERED: HEPARIN 5,000 UNIT/1 ML VIAL ONE (08:30)
[2022-08-13] MEDS ORDERED: TISSUE ADHESIVE 1 EACH APPLICATOR TOP ONE ×2 (08:30→09:30)
[2022-08-13] MEDS ORDERED: ceFAZolin 1,000 MG VIAL ONE (09:12)
[2022-08-13] MEDS ORDERED: SEVOFLURANE 1 UNIT/15 MINUTE INH ONE (09:19)
[2022-08-13] MEDS ORDERED: ROCURONIUM 50 MG/5 ML VIAL IV ONE (09:19)
[2022-08-13] MEDS: INSULIN GLARGINE 100 UNIT/ML SUBCUT SCH (10:41)
[2022-08-13] MEDS ORDERED: ALBUTEROL 2.5 MG/3 ML NEB RESP TX SCH (15:00)
[2022-08-13] MEDS: ALBUTEROL 2.5 MG/3 ML NEB RESP TX SCH (19:13)
[2022-08-13] MEDS: DORNASE ALFA 2.5 MG/2.5 ML VIAL RESP TX SCH (19:13)
[2022-08-13] MEDS ORDERED: COCAINE SUBSTITUTE 30 ML BOTTLE TOP ONE (21:05)
[2022-08-13] MEDS ORDERED: ETOMIDATE 20 MG/10 ML VIAL IV ONE ×2 (21:17→21:32)
[2022-08-13] MEDS ORDERED: VECURONIUM 10 MG VIAL IV ONE ×2 (21:17→21:32)
[2022-08-13 23:05] LABS: Hematocrit 27.2 VOL% (42.0-52.0); Hemoglobin 8.6 GM/DL (14.0-18.0)
[2022-08-13 23:16] LABS: PT Patient Result 10.6 SECS (10.1-12.1)
[2022-08-13 23:23] LABS: Arterial Base Excess iSTAT -6 MMOL/L (-2.5-2.5); Arterial Bicarbonate iSTAT 20.4 MMOL/L (20-26); Arterial O2 Saturation iSTAT 99 % (95-100); Arterial PCO2 iSTAT 43 MM HG (35-48); Arterial PO2 iSTAT 167 MM HG (80-95); Arterial Total CO2 iSTAT 22 MMO/L (23-27); Arterial pH iSTAT 7.284 (7.35-7.45)
[2022-08-13] MEDS: cloNIDine 0.1 MG TABLET PO SCH (23:49)
[2022-08-13] MEDS: FAMOTIDINE 20 MG TABLET PO SCH (23:52)
[2022-08-14] MEDS: ALBUTEROL 2.5 MG/3 ML NEB RESP TX SCH ×4 (00:12→19:20)
[2022-08-14] MEDS: INSULIN LISPRO 100 UNIT/ML SUBCUT SCH ×4 (00:30→17:47)
[2022-08-14] MEDS: fentaNYL INJ 2,500 MCG in SODIUM CHLORIDE 0.9% 75 ML IV PRN ×2 (03:30→17:44)
[2022-08-14 04:52] LABS: Arterial Bicarbonate iSTAT 21.4 MMOL/L (20-26); Arterial pH iSTAT 7.294 (7.35-7.45)
[2022-08-14 05:04] LABS: Basophils % 0.2 % (0.0-0.8); Eosinophils % 0.2 % (0.00-10.9); Hematocrit 24.5 VOL% (42.0-52.0); Hemoglobin 7.8 GM/DL (14.0-18.0); Immature Granulocytes % 0.6 %; Immature Granulocytes Absolute 0.06 #; Lymphocytes # 0.3 10*3/uL (1.4-4.0); Lymphocytes % 3.3 % (21.2-54.2); Mean Corpuscular HGB Conc 31.8 GM/DL (32-36); Mean Corpuscular Volume 89.4 FL (87-102); Mean Platelet Volume 9.5 FL (9.6-12.0); Monocytes # 0.7 10*3/uL (0.11-0.8); Monocytes % 7.2 % (1.7-12.7); Neutrophils % 88.5 % (38.7-73.9); Platelet Count 409 T/CUMM (130-400); Red Blood Count 2.74 MC/CUMM (3.8-5.5); Red Cell Distribution Width 15.6 % (9.3-17.3); White Blood Count 9.75 T/CUMM (4-12)
[2022-08-14 05:18] LABS: Albumin 1.8 G/DL (3.4-5.0); Bilirubin,Total 0.5 MG/DL (0.20-1.00); Calcium 8.9 MG/DL (8.5-10.1); Osmolality,Calculated 305.2 MOS/KG (273-304); Potassium 4.8 MMOL/L (3.5-5.1); Total Protein 4.8 G/DL (6.4-8.2)
[2022-08-14 05:25] LABS: Hypochromia 1+; Lymphocytes 1 % (20-55); Microcytosis 1+; Ovalocytes Slight; Platelet Estimate Adequate; Total Cells Counted 100
[2022-08-14] MEDS: METOCLOPRAMIDE 10 MG/2 ML VIAL IV SCH ×3 (05:57→21:01)
[2022-08-14] MEDS: DORNASE ALFA 2.5 MG/2.5 ML VIAL RESP TX SCH ×2 (07:33→19:20)
[2022-08-14] MEDS: POLYETHYLENE GLYCOL POWDER 17 GM PACK PO SCH (08:11)
[2022-08-14] MEDS: SENNA 8.6 MG TABLET PO SCH ×2 (08:12→20:44)
[2022-08-14] MEDS: ASCORBIC ACID 500 MG TABLET PO SCH (08:32)
[2022-08-14] MEDS: TACROLIMUS 0.5 MG CAPSULE PO SCH ×2 (08:33→20:44)
[2022-08-14] MEDS: CHOLECALCIFEROL 5,000 UNIT TABLET PO SCH (08:33)
[2022-08-14] MEDS: MULTIVITAMIN (BEROCCA) TABLET PO SCH (08:33)
[2022-08-14] MEDS: MYCOPHENOLATE MOFETIL 250 MG CAPSULE PO SCH ×2 (08:33→20:44)
[2022-08-14] MEDS: CALCIUM ACETATE 667 MG CAPSULE PO SCH ×3 (08:33→18:15)
[2022-08-14] MEDS: ZINC GLUCONATE 50 MG TABLET PO SCH (08:33)
[2022-08-14] MEDS: FLUCONAZOLE 200 MG TABLET PO SCH (08:33)
[2022-08-14] MEDS: FERROUS SULFATE 300 MG/5 ML UDCUP PO SCH ×2 (08:34→18:15)
[2022-08-14] MEDS: INSULIN GLARGINE 100 UNIT/ML SUBCUT SCH (08:38)
[2022-08-14 09:28] LABS: Hematocrit 25.2 VOL% (42.0-52.0); Hemoglobin 7.9 GM/DL (14.0-18.0)
[2022-08-14] MEDS: carvediloL 3.125 MG TABLET PO SCH ×2 (09:44→18:15)
[2022-08-14] MEDS: amLODIPine 10 MG TABLET PO SCH (09:45)
[2022-08-14] MEDS: methylPREDNISolone SOD SUC 40 MG/1 ML VIAL IV SCH ×2 (10:00→21:00)
[2022-08-14 14:42] LABS: Hematocrit 26.8 VOL% (42.0-52.0); Hemoglobin 8.5 GM/DL (14.0-18.0)
[2022-08-14 17:06] LABS: Arterial Base Excess iSTAT 1 MMOL/L (-2.5-2.5); Arterial Bicarbonate iSTAT 26.8 MMOL/L (20-26); Arterial O2 Saturation iSTAT 100 % (95-100); Arterial PCO2 iSTAT 49 MM HG (35-48); Arterial PO2 iSTAT 180 MM HG (80-95); Arterial Total CO2 iSTAT 28 MMO/L (23-27); Arterial pH iSTAT 7.343 (7.35-7.45)
[2022-08-14 17:29] LABS: Hemoglobin 8.8 GM/DL (14.0-18.0)
[2022-08-14] MEDS: cloNIDine 0.1 MG TABLET PO SCH (20:43)
[2022-08-14] MEDS: FAMOTIDINE 20 MG TABLET PO SCH (20:43)
[2022-08-14 21:25] LABS: Hemoglobin 7.1 GM/DL (14.0-18.0)
[2022-08-15] MEDS: INSULIN LISPRO 100 UNIT/ML SUBCUT SCH ×4 (00:02→18:09)
[2022-08-15] MEDS: ALBUTEROL 2.5 MG/3 ML NEB RESP TX SCH ×4 (00:16→19:06)
[2022-08-15 00:19] LABS: Hematocrit 22.5 VOL% (42.0-52.0); Hemoglobin 7.1 GM/DL (14.0-18.0)
[2022-08-15] MEDS: METOCLOPRAMIDE 10 MG/2 ML VIAL IV SCH ×3 (05:26→21:52)
[2022-08-15 06:09] LABS: Arterial Bicarbonate iSTAT 23.8 MMOL/L (20-26); Arterial pH iSTAT 7.365 (7.35-7.45)
[2022-08-15 06:33] LABS: Albumin 1.7 G/DL (3.4-5.0); Bilirubin,Total 0.4 MG/DL (0.20-1.00); Calcium 8.4 MG/DL (8.5-10.1); Osmolality,Calculated 296.1 MOS/KG (273-304); Potassium 4.7 MMOL/L (3.5-5.1); Total Protein 4.6 G/DL (6.4-8.2)
[2022-08-15 06:41] LABS: Hematocrit 23.8 VOL% (42.0-52.0); Hemoglobin 7.7 GM/DL (14.0-18.0); Immature Granulocytes % 0.9 %; Immature Granulocytes Absolute 0.04 #; Lymphocytes # 0.1 10*3/uL (1.4-4.0); Mean Corpuscular HGB Conc 32.4 GM/DL (32-36); Mean Corpuscular Volume 88.8 FL (87-102); Mean Platelet Volume 9.7 FL (9.6-12.0); Monocytes # 0.2 10*3/uL (0.11-0.8); Monocytes % 4.7 % (1.7-12.7); Neutrophils % 91.4 % (38.7-73.9); Platelet Count 336 T/CUMM (130-400); Red Blood Count 2.68 MC/CUMM (3.8-5.5); Red Cell Distribution Width 15.3 % (9.3-17.3); White Blood Count 4.67 T/CUMM (4-12)
[2022-08-15] MEDS: fentaNYL INJ 2,500 MCG in SODIUM CHLORIDE 0.9% 75 ML IV PRN ×2 (06:46→19:52)
[2022-08-15 07:13] LABS: Hypochromia Slight; Lymphocytes 5 % (20-55); Microcytosis Slight; Platelet Estimate Adequate; Total Cells Counted 100
[2022-08-15] MEDS: DORNASE ALFA 2.5 MG/2.5 ML VIAL RESP TX SCH ×2 (07:38→19:06)
[2022-08-15] MEDS: FERROUS SULFATE 300 MG/5 ML UDCUP PO SCH ×2 (09:02→18:08)
[2022-08-15] MEDS: FLUCONAZOLE 200 MG TABLET PO SCH (09:03)
[2022-08-15] MEDS: MYCOPHENOLATE MOFETIL 250 MG CAPSULE PO SCH ×2 (09:03→21:52)
[2022-08-15] MEDS: ASCORBIC ACID 500 MG TABLET PO SCH (09:03)
[2022-08-15] MEDS: SENNA 8.6 MG TABLET PO SCH ×2 (09:03→21:52)
[2022-08-15] MEDS: amLODIPine 10 MG TABLET PO SCH (09:03)
[2022-08-15] MEDS: ZINC GLUCONATE 50 MG TABLET PO SCH (09:03)
[2022-08-15] MEDS: carvediloL 3.125 MG TABLET PO SCH ×2 (09:03→18:08)
[2022-08-15] MEDS: TACROLIMUS 0.5 MG CAPSULE PO SCH ×2 (09:03→21:52)
[2022-08-15] MEDS: MULTIVITAMIN (BEROCCA) TABLET PO SCH (09:04)
[2022-08-15] MEDS: POLYETHYLENE GLYCOL POWDER 17 GM PACK PO SCH (09:42)
[2022-08-15] MEDS: INSULIN GLARGINE 100 UNIT/ML SUBCUT SCH (09:45)
[2022-08-15] MEDS: CALCIUM ACETATE 667 MG CAPSULE PO SCH ×3 (09:47→18:08)
[2022-08-15] MEDS: CHOLECALCIFEROL 5,000 UNIT TABLET PO SCH (09:48)
[2022-08-15] MEDS: methylPREDNISolone SOD SUC 40 MG/1 ML VIAL IV SCH ×2 (09:49→21:53)
[2022-08-15] MEDS: FAMOTIDINE 20 MG TABLET PO SCH (21:52)
[2022-08-16] MEDS: cloNIDine 0.1 MG TABLET PO SCH ×2 (00:25→20:45)
[2022-08-16] MEDS: ALBUTEROL 2.5 MG/3 ML NEB RESP TX SCH ×4 (00:25→19:17)
[2022-08-16] MEDS: INSULIN LISPRO 100 UNIT/ML SUBCUT SCH ×4 (00:32→19:10)
[2022-08-16 04:22] LABS: Arterial Bicarbonate iSTAT 22.6 MMOL/L (20-26); Arterial pH iSTAT 7.353 (7.35-7.45)
[2022-08-16 04:37] LABS: Hematocrit 24.7 VOL% (42.0-52.0); Hemoglobin 7.9 GM/DL (14.0-18.0); Immature Granulocytes % 0.7 %; Immature Granulocytes Absolute 0.04 #; Lymphocytes # 0.1 10*3/uL (1.4-4.0); Lymphocytes % 2.3 % (21.2-54.2); Mean Corpuscular Volume 87.6 FL (87-102); Mean Platelet Volume 9.5 FL (9.6-12.0); Monocytes # 0.2 10*3/uL (0.11-0.8); Monocytes % 3.5 % (1.7-12.7); Neutrophils % 93.5 % (38.7-73.9); Platelet Count 363 T/CUMM (130-400); Red Blood Count 2.82 MC/CUMM (3.8-5.5); Red Cell Distribution Width 15.4 % (9.3-17.3); White Blood Count 6.05 T/CUMM (4-12)
[2022-08-16 04:54] LABS: Bilirubin,Total 0.4 MG/DL (0.20-1.00); Calcium 9.1 MG/DL (8.5-10.1); Osmolality,Calculated 300.4 MOS/KG (273-304); Potassium 5.1 MMOL/L (3.5-5.1); Total Protein 5.1 G/DL (6.4-8.2)
[2022-08-16 04:59] LABS: Lymphocytes 2 % (20-55); Total Cells Counted 100
[2022-08-16 05:00] LABS: Microcytosis 1+; Ovalocytes Slight
[2022-08-16] MEDS: METOCLOPRAMIDE 10 MG/2 ML VIAL IV SCH ×3 (05:31→22:02)
[2022-08-16] MEDS: DORNASE ALFA 2.5 MG/2.5 ML VIAL RESP TX SCH ×2 (07:20→19:17)
[2022-08-16] MEDS: fentaNYL INJ 2,500 MCG in SODIUM CHLORIDE 0.9% 75 ML IV PRN ×2 (09:14→21:30)
[2022-08-16] MEDS: CALCIUM ACETATE 667 MG CAPSULE PO SCH ×3 (09:54→17:37)
[2022-08-16] MEDS: FERROUS SULFATE 300 MG/5 ML UDCUP PO SCH ×2 (09:54→17:37)
[2022-08-16] MEDS: MULTIVITAMIN (BEROCCA) TABLET PO SCH (09:54)
[2022-08-16] MEDS: carvediloL 3.125 MG TABLET PO SCH ×2 (09:54→17:37)
[2022-08-16] MEDS: FLUCONAZOLE 200 MG TABLET PO SCH (09:54)
[2022-08-16] MEDS: MYCOPHENOLATE MOFETIL 250 MG CAPSULE PO SCH ×2 (09:54→20:45)
[2022-08-16] MEDS: CHOLECALCIFEROL 5,000 UNIT TABLET PO SCH (09:55)
[2022-08-16] MEDS: methylPREDNISolone SOD SUC 40 MG/1 ML VIAL IV SCH ×2 (09:55→22:05)
[2022-08-16] MEDS: amLODIPine 10 MG TABLET PO SCH (09:55)
[2022-08-16] MEDS: ZINC GLUCONATE 50 MG TABLET PO SCH (09:55)
[2022-08-16] MEDS: SENNA 8.6 MG TABLET PO SCH ×2 (09:55→20:45)
[2022-08-16] MEDS: TACROLIMUS 0.5 MG CAPSULE PO SCH ×2 (09:55→20:45)
[2022-08-16] MEDS: ASCORBIC ACID 500 MG TABLET PO SCH (09:55)
[2022-08-16] MEDS: POLYETHYLENE GLYCOL POWDER 17 GM PACK PO SCH (09:55)
[2022-08-16] MEDS: INSULIN GLARGINE 100 UNIT/ML SUBCUT SCH (09:56)
[2022-08-16] MEDS: FAMOTIDINE 20 MG TABLET PO SCH (20:45)
[2022-08-17] MEDS: INSULIN LISPRO 100 UNIT/ML SUBCUT SCH ×4 (00:13→18:45)
[2022-08-17] MEDS: ALBUTEROL 2.5 MG/3 ML NEB RESP TX SCH ×4 (01:13→19:24)
[2022-08-17 05:40] LABS: Arterial Bicarbonate iSTAT 23.9 MMOL/L (20-26); Arterial pH iSTAT 7.386 (7.35-7.45)
[2022-08-17 05:42] LABS: Basophils % 0.1 % (0.0-0.8); Hematocrit 23.3 VOL% (42.0-52.0); Hemoglobin 7.2 GM/DL (14.0-18.0); Immature Granulocytes % 0.9 %; Immature Granulocytes Absolute 0.06 #; Lymphocytes # 0.2 10*3/uL (1.4-4.0); Lymphocytes % 2.5 % (21.2-54.2); Mean Corpuscular HGB Conc 30.9 GM/DL (32-36); Mean Corpuscular Volume 90.3 FL (87-102); Mean Platelet Volume 9.4 FL (9.6-12.0); Monocytes # 0.3 10*3/uL (0.11-0.8); Monocytes % 4.3 % (1.7-12.7); Neutrophils % 92.2 % (38.7-73.9); Platelet Count 381 T/CUMM (130-400); Red Blood Count 2.58 MC/CUMM (3.8-5.5); Red Cell Distribution Width 15.7 % (9.3-17.3); White Blood Count 6.91 T/CUMM (4-12)
[2022-08-17 05:58] LABS: Albumin 1.7 G/DL (3.4-5.0); Bilirubin,Total 0.4 MG/DL (0.20-1.00); Calcium 8.7 MG/DL (8.5-10.1); Osmolality,Calculated 293.1 MOS/KG (273-304); Potassium 4.6 MMOL/L (3.5-5.1); Total Protein 4.8 G/DL (6.4-8.2)
[2022-08-17 06:14] LABS: Band Neutrophils 9 % (0-10); Lymphocytes 4 % (20-55); Platelet Estimate Normal; Total Cells Counted 100
[2022-08-17 06:15] LABS: Anisocytosis 1+; Ovalocytes Few
[2022-08-17] MEDS: METOCLOPRAMIDE 10 MG/2 ML VIAL IV SCH ×3 (06:24→22:29)
[2022-08-17] MEDS: DORNASE ALFA 2.5 MG/2.5 ML VIAL RESP TX SCH ×2 (07:01→19:25)
[2022-08-17] MEDS ORDERED: SODIUM CHLORIDE 0.9% 500 ML IV ONE (07:10)
[2022-08-17] MEDS: FERROUS SULFATE 300 MG/5 ML UDCUP PO SCH ×2 (08:59→18:00)
[2022-08-17] MEDS: TACROLIMUS 0.5 MG CAPSULE PO SCH ×2 (08:59→20:49)
[2022-08-17] MEDS: ASCORBIC ACID 500 MG TABLET PO SCH (08:59)
[2022-08-17] MEDS: MULTIVITAMIN (BEROCCA) TABLET PO SCH (08:59)
[2022-08-17] MEDS: CALCIUM ACETATE 667 MG CAPSULE PO SCH ×3 (08:59→18:00)
[2022-08-17] MEDS: ZINC GLUCONATE 50 MG TABLET PO SCH (09:00)
[2022-08-17] MEDS: FLUCONAZOLE 200 MG TABLET PO SCH (09:00)
[2022-08-17] MEDS: MYCOPHENOLATE MOFETIL 250 MG CAPSULE PO SCH ×2 (09:00→20:49)
[2022-08-17] MEDS: carvediloL 3.125 MG TABLET PO SCH ×2 (09:01→18:00)
[2022-08-17] MEDS: POLYETHYLENE GLYCOL POWDER 17 GM PACK PO SCH (09:02)
[2022-08-17] MEDS: INSULIN GLARGINE 100 UNIT/ML SUBCUT SCH (09:02)
[2022-08-17] MEDS: amLODIPine 10 MG TABLET PO SCH (09:03)
[2022-08-17] MEDS: SENNA 8.6 MG TABLET PO SCH ×2 (09:03→20:49)
[2022-08-17] MEDS: CHOLECALCIFEROL 5,000 UNIT TABLET PO SCH (09:03)
[2022-08-17] MEDS: methylPREDNISolone SOD SUC 40 MG/1 ML VIAL IV SCH ×2 (11:00→22:29)
[2022-08-17] MEDS ORDERED: SODIUM CHLORIDE 0.9% 1,000 ML IV PRN (11:28)
[2022-08-17] MEDS: METOPROLOL TARTRATE 5 MG/5 ML VIAL IV PRN (14:14)
[2022-08-17] MEDS: fentaNYL INJ 2,500 MCG in SODIUM CHLORIDE 0.9% 75 ML IV PRN (14:14)
[2022-08-17] MEDS: FAMOTIDINE 20 MG TABLET PO SCH (20:49)
[2022-08-17] MEDS: cloNIDine 0.1 MG TABLET PO SCH (20:49)
[2022-08-18] MEDS: ALBUTEROL 2.5 MG/3 ML NEB RESP TX SCH ×4 (00:30→19:25)
[2022-08-18] MEDS: INSULIN LISPRO 100 UNIT/ML SUBCUT SCH ×4 (00:57→18:13)
[2022-08-18] MEDS: fentaNYL INJ 2,500 MCG in SODIUM CHLORIDE 0.9% 75 ML IV PRN ×2 (01:55→17:12)
[2022-08-18 03:27] LABS: Basophils % 0.2 % (0.0-0.8); Eosinophils # 0.1 10*3/uL (0.0-0.87); Eosinophils % 0.9 % (0.00-10.9); Hematocrit 25.5 VOL% (42.0-52.0); Hemoglobin 8.3 GM/DL (14.0-18.0); Immature Granulocytes % 0.8 %; Immature Granulocytes Absolute 0.04 #; Lymphocytes # 0.4 10*3/uL (1.4-4.0); Lymphocytes % 6.9 % (21.2-54.2); Mean Corpuscular HGB Conc 32.5 GM/DL (32-36); Mean Corpuscular Volume 89.5 FL (87-102); Mean Platelet Volume 9.2 FL (9.6-12.0); Monocytes # 0.4 10*3/uL (0.11-0.8); Monocytes % 6.9 % (1.7-12.7); Neutrophils % 84.3 % (38.7-73.9); Platelet Count 357 T/CUMM (130-400); Red Blood Count 2.85 MC/CUMM (3.8-5.5); Red Cell Distribution Width 15.3 % (9.3-17.3); White Blood Count 5.33 T/CUMM (4-12)
[2022-08-18 03:40] LABS: Arterial Bicarbonate iSTAT 24.1 MMOL/L (20-26); Arterial pH iSTAT 7.449 (7.35-7.45)
[2022-08-18 03:47] LABS: Albumin 1.7 G/DL (3.4-5.0); Bilirubin,Total 0.4 MG/DL (0.20-1.00); Calcium 8.8 MG/DL (8.5-10.1); Osmolality,Calculated 288.8 MOS/KG (273-304); Potassium 3.9 MMOL/L (3.5-5.1)
[2022-08-18] MEDS: METOCLOPRAMIDE 10 MG/2 ML VIAL IV SCH ×3 (06:40→21:54)
[2022-08-18] MEDS: DORNASE ALFA 2.5 MG/2.5 ML VIAL RESP TX SCH ×2 (07:39→19:25)
[2022-08-18] MEDS: FERROUS SULFATE 300 MG/5 ML UDCUP PO SCH ×2 (09:18→16:47)
[2022-08-18] MEDS: carvediloL 3.125 MG TABLET PO SCH ×2 (09:18→16:47)
[2022-08-18] MEDS: MULTIVITAMIN (BEROCCA) TABLET PO SCH (09:19)
[2022-08-18] MEDS: CHOLECALCIFEROL 5,000 UNIT TABLET PO SCH (09:19)
[2022-08-18] MEDS: CALCIUM ACETATE 667 MG CAPSULE PO SCH ×3 (09:19→16:47)
[2022-08-18] MEDS: ASCORBIC ACID 500 MG TABLET PO SCH (09:19)
[2022-08-18] MEDS: FLUCONAZOLE 200 MG TABLET PO SCH (09:19)
[2022-08-18] MEDS: amLODIPine 10 MG TABLET PO SCH (09:19)
[2022-08-18] MEDS: SENNA 8.6 MG TABLET PO SCH ×2 (09:20→20:21)
[2022-08-18] MEDS: POLYETHYLENE GLYCOL POWDER 17 GM PACK PO SCH (09:20)
[2022-08-18] MEDS: methylPREDNISolone SOD SUC 40 MG/1 ML VIAL IV SCH ×2 (09:20→21:54)
[2022-08-18] MEDS: ZINC GLUCONATE 50 MG TABLET PO SCH (09:20)
[2022-08-18] MEDS: MYCOPHENOLATE MOFETIL 250 MG CAPSULE PO SCH ×2 (09:20→20:20)
[2022-08-18] MEDS: TACROLIMUS 0.5 MG CAPSULE PO SCH ×2 (09:20→20:20)
[2022-08-18] MEDS: INSULIN GLARGINE 100 UNIT/ML SUBCUT SCH (09:26)
[2022-08-18] MEDS ORDERED: FUROSEMIDE 20 MG/2 ML VIAL IV ONE ×2 (17:56→18:11)
[2022-08-18] MEDS: FAMOTIDINE 20 MG TABLET PO SCH (20:21)
[2022-08-18] MEDS: cloNIDine 0.1 MG TABLET PO SCH (20:51)
[2022-08-19] MEDS: INSULIN LISPRO 100 UNIT/ML SUBCUT SCH ×5 (00:01→23:49)
[2022-08-19] MEDS: ALBUTEROL 2.5 MG/3 ML NEB RESP TX SCH ×4 (01:12→19:18)
[2022-08-19 03:51] LABS: Arterial Bicarbonate iSTAT 24.3 MMOL/L (20-26); Arterial pH iSTAT 7.397 (7.35-7.45)
[2022-08-19 04:01] LABS: Basophils % 0.2 % (0.0-0.8); Hematocrit 26.1 VOL% (42.0-52.0); Hemoglobin 8.3 GM/DL (14.0-18.0); Immature Granulocytes % 1.8 %; Immature Granulocytes Absolute 0.12 #; Lymphocytes # 0.2 10*3/uL (1.4-4.0); Lymphocytes % 3.1 % (21.2-54.2); Mean Corpuscular HGB Conc 31.8 GM/DL (32-36); Mean Corpuscular Volume 90.3 FL (87-102); Mean Platelet Volume 9.3 FL (9.6-12.0); Monocytes # 0.2 10*3/uL (0.11-0.8); Monocytes % 3.2 % (1.7-12.7); Neutrophils % 91.7 % (38.7-73.9); Platelet Count 366 T/CUMM (130-400); Red Blood Count 2.89 MC/CUMM (3.8-5.5); Red Cell Distribution Width 15.4 % (9.3-17.3); White Blood Count 6.54 T/CUMM (4-12)
[2022-08-19] MEDS: fentaNYL INJ 2,500 MCG in SODIUM CHLORIDE 0.9% 75 ML IV PRN ×2 (04:04→21:40)
[2022-08-19 04:16] LABS: INR 0.9; PT Patient Result 9.9 SECS (10.1-12.1)
[2022-08-19 04:22] LABS: Band Neutrophils 1 % (0-10); Hypochromia Slight; Lymphocytes 2 % (20-55); Microcytosis Slight; Platelet Estimate Adequate; Total Cells Counted 100
[2022-08-19 04:42] LABS: Calcium 8.9 MG/DL (8.5-10.1); Osmolality,Calculated 293.4 MOS/KG (273-304); Potassium 5.2 MMOL/L (3.5-5.1)
[2022-08-19] MEDS: METOCLOPRAMIDE 10 MG/2 ML VIAL IV SCH ×3 (06:38→22:44)
[2022-08-19] MEDS: DORNASE ALFA 2.5 MG/2.5 ML VIAL RESP TX SCH ×2 (07:41→19:18)
[2022-08-19] MEDS: CALCIUM ACETATE 667 MG CAPSULE PO SCH ×3 (08:39→17:16)
[2022-08-19] MEDS: FERROUS SULFATE 300 MG/5 ML UDCUP PO SCH ×2 (08:40→17:30)
[2022-08-19] MEDS: TACROLIMUS 0.5 MG CAPSULE PO SCH ×2 (08:41→20:41)
[2022-08-19] MEDS: MYCOPHENOLATE MOFETIL 250 MG CAPSULE PO SCH ×2 (08:44→20:41)
[2022-08-19] MEDS: MULTIVITAMIN (BEROCCA) TABLET PO SCH (08:45)
[2022-08-19] MEDS: amLODIPine 10 MG TABLET PO SCH (08:45)
[2022-08-19] MEDS: ZINC GLUCONATE 50 MG TABLET PO SCH (08:45)
[2022-08-19] MEDS: carvediloL 3.125 MG TABLET PO SCH ×2 (08:45→17:30)
[2022-08-19] MEDS: SENNA 8.6 MG TABLET PO SCH ×2 (08:45→20:41)
[2022-08-19] MEDS: POLYETHYLENE GLYCOL POWDER 17 GM PACK PO SCH (08:47)
[2022-08-19] MEDS: CHOLECALCIFEROL 5,000 UNIT TABLET PO SCH (08:47)
[2022-08-19] MEDS: ASCORBIC ACID 500 MG TABLET PO SCH (08:47)
[2022-08-19] MEDS: INSULIN GLARGINE 100 UNIT/ML SUBCUT SCH (09:45)
[2022-08-19] MEDS ORDERED: ROCURONIUM 50 MG/5 ML VIAL IV ONE ×2 (09:55→15:11)
[2022-08-19] MEDS: methylPREDNISolone SOD SUC 40 MG/1 ML VIAL IV SCH ×2 (09:55→22:45)
[2022-08-19] MEDS ORDERED: MIDAZOLAM 2 MG/2 ML VIAL ONE ×3 (09:55→15:11)
[2022-08-19] MEDS ORDERED: fentaNYL INJ 1,250 MCG in SODIUM CHLORIDE 0.9% 225 ML IV PRN (17:57)
[2022-08-19] MEDS: cloNIDine 0.1 MG TABLET PO SCH (20:40)
[2022-08-19] MEDS: FAMOTIDINE 20 MG TABLET PO SCH (20:41)
[2022-08-20] MEDS: ALBUTEROL 2.5 MG/3 ML NEB RESP TX SCH ×4 (00:01→19:12)
[2022-08-20 04:40] LABS: Arterial Bicarbonate iSTAT 20.6 MMOL/L (20-26); Arterial pH iSTAT 7.369 (7.35-7.45)
[2022-08-20 04:51] LABS: Basophils % 0.1 % (0.0-0.8); Hematocrit 26.7 VOL% (42.0-52.0); Hemoglobin 8.7 GM/DL (14.0-18.0); Immature Granulocytes % 3.5 %; Immature Granulocytes Absolute 0.31 #; Lymphocytes # 0.2 10*3/uL (1.4-4.0); Lymphocytes % 2.6 % (21.2-54.2); Mean Corpuscular HGB Conc 32.6 GM/DL (32-36); Mean Corpuscular Volume 90.2 FL (87-102); Mean Platelet Volume 9.2 FL (9.6-12.0); Monocytes # 0.3 10*3/uL (0.11-0.8); Monocytes % 2.8 % (1.7-12.7); Platelet Count 406 T/CUMM (130-400); Red Blood Count 2.96 MC/CUMM (3.8-5.5); Red Cell Distribution Width 15.3 % (9.3-17.3); White Blood Count 8.94 T/CUMM (4-12)
[2022-08-20 05:12] LABS: Band Neutrophils 2 % (0-10); Hypochromia Slight; Platelet Estimate Increased; Total Cells Counted 100
[2022-08-20 05:17] LABS: Calcium 9.1 MG/DL (8.5-10.1); Osmolality,Calculated 297.8 MOS/KG (273-304); Potassium 5.6 MMOL/L (3.5-5.1)
[2022-08-20] MEDS: hydrALAZINE 20 MG/1 ML VIAL IV PRN (05:44)
[2022-08-20] MEDS: METOCLOPRAMIDE 10 MG/2 ML VIAL IV SCH ×3 (05:44→22:50)
[2022-08-20] MEDS: INSULIN LISPRO 100 UNIT/ML SUBCUT SCH ×3 (06:07→18:14)
[2022-08-20] MEDS: FERROUS SULFATE 300 MG/5 ML UDCUP PO SCH ×2 (08:04→16:37)
[2022-08-20] MEDS: TACROLIMUS 0.5 MG CAPSULE PO SCH ×2 (08:04→20:26)
[2022-08-20] MEDS: MYCOPHENOLATE MOFETIL 250 MG CAPSULE PO SCH ×2 (08:04→20:26)
[2022-08-20] MEDS: CHOLECALCIFEROL 5,000 UNIT TABLET PO SCH (08:05)
[2022-08-20] MEDS: carvediloL 3.125 MG TABLET PO SCH ×2 (08:05→16:37)
[2022-08-20] MEDS: CALCIUM ACETATE 667 MG CAPSULE PO SCH ×3 (08:05→16:37)
[2022-08-20] MEDS: INSULIN GLARGINE 100 UNIT/ML SUBCUT SCH (08:05)
[2022-08-20] MEDS: SENNA 8.6 MG TABLET PO SCH ×2 (08:05→20:26)
[2022-08-20] MEDS: MULTIVITAMIN (BEROCCA) TABLET PO SCH (08:05)
[2022-08-20] MEDS: ASCORBIC ACID 500 MG TABLET PO SCH (08:05)
[2022-08-20] MEDS: amLODIPine 10 MG TABLET PO SCH (08:05)
[2022-08-20] MEDS: ZINC GLUCONATE 50 MG TABLET PO SCH (08:05)
[2022-08-20] MEDS: POLYETHYLENE GLYCOL POWDER 17 GM PACK PO SCH (08:06)
[2022-08-20] MEDS: predniSONE 20 MG TABLET PO SCH (08:22)
[2022-08-20] MEDS: fentaNYL 50 MCG/HR PATCH TRANSDERM SCH (16:36)
[2022-08-20] MEDS: DORNASE ALFA 2.5 MG/2.5 ML VIAL RESP TX SCH ×2 (18:04→19:12)
[2022-08-20] MEDS: fentaNYL INJ 2,500 MCG in SODIUM CHLORIDE 0.9% 75 ML IV PRN (19:24)
[2022-08-20] MEDS: cloNIDine 0.1 MG TABLET PO SCH (20:26)
[2022-08-20] MEDS: FAMOTIDINE 20 MG TABLET PO SCH (20:26)
[2022-08-21] MEDS: ALBUTEROL 2.5 MG/3 ML NEB RESP TX SCH ×4 (00:09→19:35)
[2022-08-21] MEDS: INSULIN LISPRO 100 UNIT/ML SUBCUT SCH ×5 (00:33→23:32)
[2022-08-21 04:23] LABS: Arterial Bicarbonate iSTAT 23.9 MMOL/L (20-26); Arterial pH iSTAT 7.347 (7.35-7.45)
[2022-08-21 04:33] LABS: Basophils % 0.2 % (0.0-0.8); Eosinophils # 0.1 10*3/uL (0.0-0.87); Eosinophils % 0.4 % (0.00-10.9); Hematocrit 28.3 VOL% (42.0-52.0); Hemoglobin 8.8 GM/DL (14.0-18.0); Immature Granulocytes % 4.4 %; Lymphocytes # 0.5 10*3/uL (1.4-4.0); Lymphocytes % 4.8 % (21.2-54.2); Mean Corpuscular HGB Conc 31.1 GM/DL (32-36); Mean Corpuscular Volume 91.3 FL (87-102); Monocytes # 1.5 10*3/uL (0.11-0.8); Monocytes % 12.9 % (1.7-12.7); Neutrophils % 77.3 % (38.7-73.9); Platelet Count 406 T/CUMM (130-400); Red Cell Distribution Width 15.9 % (9.3-17.3); White Blood Count 11.28 T/CUMM (4-12)
[2022-08-21 04:52] LABS: Band Neutrophils 4 % (0-10); Hypochromia Slight; Lymphocytes 8 % (20-55); Microcytosis Slight; Platelet Estimate Adequate; Total Cells Counted 100
[2022-08-21 04:56] LABS: Calcium 9.2 MG/DL (8.5-10.1); Osmolality,Calculated 294.2 MOS/KG (273-304); Potassium 4.5 MMOL/L (3.5-5.1)
[2022-08-21] MEDS: METOCLOPRAMIDE 10 MG/2 ML VIAL IV SCH ×3 (05:24→21:00)
[2022-08-21] MEDS: DORNASE ALFA 2.5 MG/2.5 ML VIAL RESP TX SCH ×2 (07:59→19:34)
[2022-08-21] MEDS: carvediloL 3.125 MG TABLET PO SCH ×2 (08:12→16:37)
[2022-08-21] MEDS: FERROUS SULFATE 300 MG/5 ML UDCUP PO SCH ×2 (08:13→16:37)
[2022-08-21] MEDS: CALCIUM ACETATE 667 MG CAPSULE PO SCH ×3 (08:13→16:37)
[2022-08-21] MEDS: MYCOPHENOLATE MOFETIL 250 MG CAPSULE PO SCH ×2 (08:14→21:00)
[2022-08-21] MEDS: MULTIVITAMIN (BEROCCA) TABLET PO SCH (08:14)
[2022-08-21] MEDS: POLYETHYLENE GLYCOL POWDER 17 GM PACK PO SCH (08:14)
[2022-08-21] MEDS: ASCORBIC ACID 500 MG TABLET PO SCH (08:15)
[2022-08-21] MEDS: predniSONE 20 MG TABLET PO SCH (08:15)
[2022-08-21] MEDS: SENNA 8.6 MG TABLET PO SCH ×2 (08:15→21:00)
[2022-08-21] MEDS: amLODIPine 10 MG TABLET PO SCH (08:15)
[2022-08-21] MEDS: TACROLIMUS 0.5 MG CAPSULE PO SCH ×2 (08:15→21:00)
[2022-08-21] MEDS: CHOLECALCIFEROL 5,000 UNIT TABLET PO SCH (08:16)
[2022-08-21] MEDS: ZINC GLUCONATE 50 MG TABLET PO SCH (08:16)
[2022-08-21] MEDS: FLUCONAZOLE 200 MG TABLET PO SCH (08:18)
[2022-08-21] MEDS: INSULIN GLARGINE 100 UNIT/ML SUBCUT SCH (08:29)
[2022-08-21] MEDS: APIXABAN 2.5 MG TABLET PO SCH (09:11)
[2022-08-21] MEDS: dexmedeTOMIDine DRIP 400 MCG/100 ML PREMIX IV PRN ×2 (12:43→21:00)
[2022-08-21] MEDS: cloNIDine 0.1 MG TABLET PO SCH (21:00)
[2022-08-21] MEDS: FAMOTIDINE 20 MG TABLET PO SCH (21:00)
[2022-08-22] MEDS: ALBUTEROL 2.5 MG/3 ML NEB RESP TX SCH ×4 (00:33→19:30)
[2022-08-22 04:06] LABS: Arterial Bicarbonate iSTAT 23.3 MMOL/L (20-26); Arterial pH iSTAT 7.379 (7.35-7.45)
[2022-08-22 04:12] LABS: Basophils % 0.2 % (0.0-0.8); Eosinophils # 0.1 10*3/uL (0.0-0.87); Eosinophils % 1.4 % (0.00-10.9); Hematocrit 26.6 VOL% (42.0-52.0); Hemoglobin 8.4 GM/DL (14.0-18.0); Immature Granulocytes % 5.6 %; Immature Granulocytes Absolute 0.53 #; Lymphocytes # 0.5 10*3/uL (1.4-4.0); Lymphocytes % 5.7 % (21.2-54.2); Mean Corpuscular HGB Conc 31.6 GM/DL (32-36); Mean Platelet Volume 9.4 FL (9.6-12.0); Monocytes # 1.2 10*3/uL (0.11-0.8); Neutrophils % 74.1 % (38.7-73.9); Platelet Count 321 T/CUMM (130-400); Red Blood Count 2.89 MC/CUMM (3.8-5.5); Red Cell Distribution Width 15.7 % (9.3-17.3); White Blood Count 9.49 T/CUMM (4-12)
[2022-08-22 04:31] LABS: Band Neutrophils 2 % (0-10); Eosinophils 1 % (0-10); Hypochromia Slight; Lymphocytes 7 % (20-55); Microcytosis Slight; Platelet Estimate Adequate; Total Cells Counted 100
[2022-08-22] MEDS: METOCLOPRAMIDE 10 MG/2 ML VIAL IV SCH ×3 (05:15→21:33)
[2022-08-22] MEDS: INSULIN LISPRO 100 UNIT/ML SUBCUT SCH ×3 (05:15→18:24)
[2022-08-22] MEDS: dexmedeTOMIDine DRIP 400 MCG/100 ML PREMIX IV PRN ×3 (05:15→19:10)
[2022-08-22] MEDS: DORNASE ALFA 2.5 MG/2.5 ML VIAL RESP TX SCH ×2 (07:40→19:30)
[2022-08-22] MEDS: carvediloL 3.125 MG TABLET PO SCH ×2 (08:02→16:10)
[2022-08-22] MEDS: FERROUS SULFATE 300 MG/5 ML UDCUP PO SCH ×2 (08:03→16:10)
[2022-08-22] MEDS: CALCIUM ACETATE 667 MG CAPSULE PO SCH ×3 (08:03→16:10)
[2022-08-22] MEDS: FLUCONAZOLE 200 MG TABLET PO SCH (08:05)
[2022-08-22] MEDS: MULTIVITAMIN (BEROCCA) TABLET PO SCH (08:05)
[2022-08-22] MEDS: MYCOPHENOLATE MOFETIL 250 MG CAPSULE PO SCH ×2 (08:05→21:33)
[2022-08-22] MEDS: ASCORBIC ACID 500 MG TABLET PO SCH (08:06)
[2022-08-22] MEDS: ZINC GLUCONATE 50 MG TABLET PO SCH (08:06)
[2022-08-22] MEDS: amLODIPine 10 MG TABLET PO SCH (08:06)
[2022-08-22] MEDS: POLYETHYLENE GLYCOL POWDER 17 GM PACK PO SCH (08:06)
[2022-08-22] MEDS: CHOLECALCIFEROL 5,000 UNIT TABLET PO SCH (08:06)
[2022-08-22] MEDS: predniSONE 20 MG TABLET PO SCH (08:06)
[2022-08-22] MEDS: SENNA 8.6 MG TABLET PO SCH ×2 (08:06→21:33)
[2022-08-22] MEDS: TACROLIMUS 0.5 MG CAPSULE PO SCH ×2 (08:06→21:33)
[2022-08-22] MEDS: INSULIN GLARGINE 100 UNIT/ML SUBCUT SCH (08:13)
[2022-08-22] MEDS: FAMOTIDINE 20 MG TABLET PO SCH (21:33)
[2022-08-22] MEDS: cloNIDine 0.1 MG TABLET PO SCH (21:33)
[2022-08-23] MEDS: INSULIN LISPRO 100 UNIT/ML SUBCUT SCH ×4 (00:15→18:23)
[2022-08-23] MEDS: ALBUTEROL 2.5 MG/3 ML NEB RESP TX SCH ×4 (01:35→20:16)
[2022-08-23] MEDS: dexmedeTOMIDine DRIP 400 MCG/100 ML PREMIX IV PRN ×3 (03:00→18:00)
[2022-08-23 04:15] LABS: Arterial pH iSTAT 7.393 (7.35-7.45)
[2022-08-23 04:55] LABS: Basophils % 0.4 % (0.0-0.8); Eosinophils # 0.2 10*3/uL (0.0-0.87); Eosinophils % 1.5 % (0.00-10.9); Hematocrit 25.4 VOL% (42.0-52.0); Immature Granulocytes % 6.1 %; Immature Granulocytes Absolute 0.64 #; Lymphocytes # 0.5 10*3/uL (1.4-4.0); Lymphocytes % 5.1 % (21.2-54.2); Mean Corpuscular HGB Conc 31.5 GM/DL (32-36); Mean Corpuscular Volume 91.7 FL (87-102); Mean Platelet Volume 9.8 FL (9.6-12.0); Monocytes # 1.1 10*3/uL (0.11-0.8); Monocytes % 10.3 % (1.7-12.7); Neutrophils % 76.6 % (38.7-73.9); Platelet Count 312 T/CUMM (130-400); Red Blood Count 2.77 MC/CUMM (3.8-5.5); Red Cell Distribution Width 15.3 % (9.3-17.3); White Blood Count 10.55 T/CUMM (4-12)
[2022-08-23 05:14] LABS: Albumin 1.4 G/DL (3.4-5.0); Bilirubin,Total 0.4 MG/DL (0.20-1.00); Calcium 9.6 MG/DL (8.5-10.1); Osmolality,Calculated 292.7 MOS/KG (273-304); Phosphorous 5.3 MG/DL (2.5-4.9); Potassium 4.9 MMOL/L (3.5-5.1); Total Protein 5.1 G/DL (6.4-8.2)
[2022-08-23 05:23] LABS: Eosinophils 1 % (0-10); Hypochromia Slight; Lymphocytes 3 % (20-55); Microcytosis Slight; Platelet Estimate Adequate; Total Cells Counted 100
[2022-08-23] MEDS: METOCLOPRAMIDE 10 MG/2 ML VIAL IV SCH ×3 (06:00→21:00)
[2022-08-23] MEDS: DORNASE ALFA 2.5 MG/2.5 ML VIAL RESP TX SCH ×2 (07:27→20:16)
[2022-08-23] MEDS: ZINC GLUCONATE 50 MG TABLET PO SCH (09:40)
[2022-08-23] MEDS: MULTIVITAMIN (BEROCCA) TABLET PO SCH (09:40)
[2022-08-23] MEDS: amLODIPine 10 MG TABLET PO SCH (09:40)
[2022-08-23] MEDS: FERROUS SULFATE 300 MG/5 ML UDCUP PO SCH ×2 (09:40→17:11)
[2022-08-23] MEDS: ALPRAZolam 0.5 MG TABLET PO SCH ×3 (09:40→20:20)
[2022-08-23] MEDS: CHOLECALCIFEROL 5,000 UNIT TABLET PO SCH (09:41)
[2022-08-23] MEDS: predniSONE 20 MG TABLET PO SCH (09:41)
[2022-08-23] MEDS: ASCORBIC ACID 500 MG TABLET PO SCH (09:41)
[2022-08-23] MEDS: TACROLIMUS 0.5 MG CAPSULE PO SCH ×2 (09:41→20:20)
[2022-08-23] MEDS: MYCOPHENOLATE MOFETIL 250 MG CAPSULE PO SCH ×2 (09:41→20:20)
[2022-08-23] MEDS: CALCIUM ACETATE 667 MG CAPSULE PO SCH ×3 (09:41→17:12)
[2022-08-23] MEDS: carvediloL 3.125 MG TABLET PO SCH ×2 (09:41→17:11)
[2022-08-23] MEDS: SENNA 8.6 MG TABLET PO SCH ×2 (09:41→20:20)
[2022-08-23] MEDS: fentaNYL 50 MCG/HR PATCH TRANSDERM SCH (09:42)
[2022-08-23] MEDS: POLYETHYLENE GLYCOL POWDER 17 GM PACK PO SCH (09:42)
[2022-08-23] MEDS: INSULIN GLARGINE 100 UNIT/ML SUBCUT SCH (09:42)
[2022-08-23] MEDS: FLUCONAZOLE 200 MG TABLET PO SCH (09:42)
[2022-08-23] MEDS: cloNIDine 0.1 MG TABLET PO SCH (20:20)
[2022-08-23] MEDS: FAMOTIDINE 20 MG TABLET PO SCH (20:20)
[2022-08-24] MEDS: INSULIN LISPRO 100 UNIT/ML SUBCUT SCH ×4 (01:02→18:07)
[2022-08-24] MEDS: dexmedeTOMIDine DRIP 400 MCG/100 ML PREMIX IV PRN ×4 (01:11→23:06)
[2022-08-24] MEDS: ALBUTEROL 2.5 MG/3 ML NEB RESP TX SCH ×4 (01:36→18:57)
[2022-08-24 03:50] LABS: Arterial pH iSTAT 7.372 (7.35-7.45)
[2022-08-24] MEDS: METOCLOPRAMIDE 10 MG/2 ML VIAL IV SCH ×3 (05:53→21:01)
[2022-08-24 06:32] LABS: Basophils # 0.1 10*3/uL (0.0-0.2); Basophils % 0.4 % (0.0-0.8); Eosinophils # 0.2 10*3/uL (0.0-0.87); Eosinophils % 1.3 % (0.00-10.9); Hematocrit 27.8 VOL% (42.0-52.0); Hemoglobin 8.8 GM/DL (14.0-18.0); Immature Granulocytes % 5.2 %; Immature Granulocytes Absolute 0.62 #; Lymphocytes # 0.5 10*3/uL (1.4-4.0); Lymphocytes % 4.5 % (21.2-54.2); Mean Corpuscular HGB Conc 31.7 GM/DL (32-36); Mean Corpuscular Volume 92.1 FL (87-102); Mean Platelet Volume 9.5 FL (9.6-12.0); Monocytes # 1.1 10*3/uL (0.11-0.8); Monocytes % 9.1 % (1.7-12.7); Neutrophils % 79.5 % (38.7-73.9); Platelet Count 310 T/CUMM (130-400); Red Blood Count 3.02 MC/CUMM (3.8-5.5); Red Cell Distribution Width 15.4 % (9.3-17.3)
[2022-08-24 06:57] LABS: Calcium 9.5 MG/DL (8.5-10.1); Osmolality,Calculated 290.4 MOS/KG (273-304); Potassium 4.6 MMOL/L (3.5-5.1)
[2022-08-24 06:59] LABS: Band Neutrophils 2 % (0-10); Eosinophils 4 % (0-10); Lymphocytes 6 % (20-55); Total Cells Counted 100
[2022-08-24 07:00] LABS: Hypochromia Slight; Microcytosis Slight; Polychromasia Slight
[2022-08-24 07:02] LABS: Platelet Estimate Normal
[2022-08-24] MEDS: DORNASE ALFA 2.5 MG/2.5 ML VIAL RESP TX SCH ×2 (07:25→18:57)
[2022-08-24] MEDS: FERROUS SULFATE 300 MG/5 ML UDCUP PO SCH ×2 (09:05→17:51)
[2022-08-24] MEDS: predniSONE 20 MG TABLET PO SCH (09:05)
[2022-08-24] MEDS: FLUCONAZOLE 200 MG TABLET PO SCH (09:06)
[2022-08-24] MEDS: ZINC GLUCONATE 50 MG TABLET PO SCH (09:06)
[2022-08-24] MEDS: MULTIVITAMIN (BEROCCA) TABLET PO SCH (09:06)
[2022-08-24] MEDS: ALPRAZolam 0.5 MG TABLET PO SCH ×3 (09:06→20:33)
[2022-08-24] MEDS: POLYETHYLENE GLYCOL POWDER 17 GM PACK PO SCH (09:07)
[2022-08-24] MEDS: ASCORBIC ACID 500 MG TABLET PO SCH (09:07)
[2022-08-24] MEDS: TACROLIMUS 0.5 MG CAPSULE PO SCH ×2 (09:07→20:33)
[2022-08-24] MEDS: carvediloL 3.125 MG TABLET PO SCH ×2 (09:08→17:51)
[2022-08-24] MEDS: CALCIUM ACETATE 667 MG CAPSULE PO SCH ×3 (09:08→17:51)
[2022-08-24] MEDS: APIXABAN 2.5 MG TABLET PO SCH ×2 (09:08→20:31)
[2022-08-24] MEDS: CHOLECALCIFEROL 5,000 UNIT TABLET PO SCH (09:08)
[2022-08-24] MEDS: amLODIPine 10 MG TABLET PO SCH (09:08)
[2022-08-24] MEDS: MYCOPHENOLATE MOFETIL 250 MG CAPSULE PO SCH ×2 (09:08→20:31)
[2022-08-24] MEDS: SENNA 8.6 MG TABLET PO SCH ×2 (09:08→20:33)
[2022-08-24] MEDS: INSULIN GLARGINE 100 UNIT/ML SUBCUT SCH (09:09)
[2022-08-24] MEDS: cloNIDine 0.1 MG TABLET PO SCH (20:31)
[2022-08-24] MEDS: FAMOTIDINE 20 MG TABLET PO SCH (20:33)
[2022-08-25] MEDS: INSULIN LISPRO 100 UNIT/ML SUBCUT SCH ×4 (00:27→18:15)
[2022-08-25] MEDS: ALBUTEROL 2.5 MG/3 ML NEB RESP TX SCH ×4 (00:30→19:14)
[2022-08-25] MEDS: MORPHINE 2 MG/1 ML SYRINGE IV PRN ×4 (02:25→19:33)
[2022-08-25 04:09] LABS: Arterial Bicarbonate iSTAT 24.1 MMOL/L (20-26); Arterial pH iSTAT 7.446 (7.35-7.45)
[2022-08-25 04:17] LABS: Basophils # 0.1 10*3/uL (0.0-0.2); Basophils % 0.5 % (0.0-0.8); Eosinophils # 0.2 10*3/uL (0.0-0.87); Eosinophils % 1.6 % (0.00-10.9); Hematocrit 28.2 VOL% (42.0-52.0); Hemoglobin 8.8 GM/DL (14.0-18.0); Immature Granulocytes % 3.3 %; Immature Granulocytes Absolute 0.33 #; Lymphocytes # 0.5 10*3/uL (1.4-4.0); Lymphocytes % 5.1 % (21.2-54.2); Mean Corpuscular HGB Conc 31.2 GM/DL (32-36); Mean Corpuscular Volume 90.7 FL (87-102); Mean Platelet Volume 9.1 FL (9.6-12.0); Monocytes % 9.6 % (1.7-12.7); Neutrophils % 79.9 % (38.7-73.9); Platelet Count 309 T/CUMM (130-400); Red Blood Count 3.11 MC/CUMM (3.8-5.5); Red Cell Distribution Width 15.3 % (9.3-17.3); White Blood Count 9.94 T/CUMM (4-12)
[2022-08-25 04:32] LABS: Calcium 9.3 MG/DL (8.5-10.1); Potassium 4.3 MMOL/L (3.5-5.1)
[2022-08-25] MEDS: dexmedeTOMIDine DRIP 400 MCG/100 ML PREMIX IV PRN ×3 (05:30→19:57)
[2022-08-25] MEDS: METOCLOPRAMIDE 10 MG/2 ML VIAL IV SCH ×3 (05:30→21:45)
[2022-08-25] MEDS: DORNASE ALFA 2.5 MG/2.5 ML VIAL RESP TX SCH ×2 (07:23→19:14)
[2022-08-25] MEDS: ZINC GLUCONATE 50 MG TABLET PO SCH (09:32)
[2022-08-25] MEDS: FERROUS SULFATE 300 MG/5 ML UDCUP PO SCH ×2 (09:32→16:44)
[2022-08-25] MEDS: predniSONE 20 MG TABLET PO SCH (09:32)
[2022-08-25] MEDS: MULTIVITAMIN (BEROCCA) TABLET PO SCH (09:32)
[2022-08-25] MEDS: ALPRAZolam 0.5 MG TABLET PO SCH (09:32)
[2022-08-25] MEDS: CALCIUM ACETATE 667 MG CAPSULE PO SCH ×3 (09:32→16:44)
[2022-08-25] MEDS: CHOLECALCIFEROL 5,000 UNIT TABLET PO SCH (09:32)
[2022-08-25] MEDS: INSULIN GLARGINE 100 UNIT/ML SUBCUT SCH (09:32)
[2022-08-25] MEDS: amLODIPine 10 MG TABLET PO SCH (09:33)
[2022-08-25] MEDS: FLUCONAZOLE 200 MG TABLET PO SCH (09:33)
[2022-08-25] MEDS: ASCORBIC ACID 500 MG TABLET PO SCH (09:33)
[2022-08-25] MEDS: SENNA 8.6 MG TABLET PO SCH ×2 (09:33→20:28)
[2022-08-25] MEDS: TACROLIMUS 0.5 MG CAPSULE PO SCH ×2 (09:33→20:28)
[2022-08-25] MEDS: MYCOPHENOLATE MOFETIL 250 MG CAPSULE PO SCH ×2 (09:33→20:28)
[2022-08-25] MEDS: carvediloL 3.125 MG TABLET PO SCH ×2 (09:33→16:44)
[2022-08-25] MEDS: POLYETHYLENE GLYCOL POWDER 17 GM PACK PO SCH (09:34)
[2022-08-25] MEDS: APIXABAN 2.5 MG TABLET PO SCH ×2 (10:03→20:28)
[2022-08-25] MEDS: METOPROLOL TARTRATE 5 MG/5 ML VIAL IV PRN ×2 (11:34→19:02)
[2022-08-25] MEDS ORDERED: DIGOXIN 0.5 MG/2 ML AMP IV ONE (14:43)
[2022-08-25] MEDS ORDERED: METOPROLOL TARTRATE 5 MG/5 ML VIAL IV ONE (14:50)
[2022-08-25] MEDS: DILTIAZEM 30 MG TABLET PO SCH ×3 (14:58→20:26)
[2022-08-25] MEDS: cloNIDine 0.1 MG TABLET PO SCH (20:26)
[2022-08-25] MEDS: FAMOTIDINE 20 MG TABLET PO SCH (20:28)
[2022-08-25] MEDS ORDERED: DILTIAZEM 25 MG/5 ML VIAL IV ONE ×2 (21:16→21:30)
[2022-08-25] MEDS ORDERED: SODIUM CHLORIDE 0.9% 250 ML IV ONE (21:31)
[2022-08-25] MEDS ORDERED: PHENYLEPHRINE DRIP 40 MG/250 ML PREMIX IV PRN (22:54)
[2022-08-25] MEDS: DILTIAZEM INJ 100 MG in SODIUM CHLORIDE 0.9% 100 ML IV SCH (23:04)
[2022-08-26] MEDS: ALBUTEROL 2.5 MG/3 ML NEB RESP TX SCH ×3 (00:05→12:32)
[2022-08-26] MEDS: INSULIN LISPRO 100 UNIT/ML SUBCUT SCH ×4 (00:54→17:56)
[2022-08-26 04:04] LABS: Arterial pH iSTAT 7.389 (7.35-7.45)
[2022-08-26 04:25] LABS: Calcium 9.5 MG/DL (8.5-10.1); Osmolality,Calculated 295.2 MOS/KG (273-304); Potassium 4.7 MMOL/L (3.5-5.1)
[2022-08-26 04:26] LABS: Basophils # 0.1 10*3/uL (0.0-0.2); Basophils % 0.6 % (0.0-0.8); Eosinophils # 0.1 10*3/uL (0.0-0.87); Eosinophils % 1.1 % (0.00-10.9); Hematocrit 25.1 VOL% (42.0-52.0); Hemoglobin 7.8 GM/DL (14.0-18.0); Immature Granulocytes % 1.4 %; Immature Granulocytes Absolute 0.15 #; Lymphocytes # 0.4 10*3/uL (1.4-4.0); Lymphocytes % 3.5 % (21.2-54.2); Mean Corpuscular HGB Conc 31.1 GM/DL (32-36); Mean Corpuscular Volume 92.3 FL (87-102); Mean Platelet Volume 9.6 FL (9.6-12.0); Monocytes # 0.8 10*3/uL (0.11-0.8); Monocytes % 7.8 % (1.7-12.7); Neutrophils % 85.6 % (38.7-73.9); Platelet Count 292 T/CUMM (130-400); Red Blood Count 2.72 MC/CUMM (3.8-5.5); White Blood Count 10.43 T/CUMM (4-12)
[2022-08-26 04:46] LABS: Hypochromia Slight; Lymphocytes 3 % (20-55); Platelet Estimate Adequate; Total Cells Counted 100
[2022-08-26] MEDS: METOCLOPRAMIDE 10 MG/2 ML VIAL IV SCH ×3 (05:45→21:03)
[2022-08-26] MEDS: DORNASE ALFA 2.5 MG/2.5 ML VIAL RESP TX SCH (07:12)
[2022-08-26] MEDS: carvediloL 3.125 MG TABLET PO SCH ×2 (08:03→17:56)
[2022-08-26] MEDS: FERROUS SULFATE 300 MG/5 ML UDCUP PO SCH ×2 (08:03→17:56)
[2022-08-26] MEDS: CALCIUM ACETATE 667 MG CAPSULE PO SCH ×3 (08:03→17:56)
[2022-08-26] MEDS: MULTIVITAMIN (BEROCCA) TABLET PO SCH (08:04)
[2022-08-26] MEDS: MYCOPHENOLATE MOFETIL 250 MG CAPSULE PO SCH ×2 (08:04→21:00)
[2022-08-26] MEDS: POLYETHYLENE GLYCOL POWDER 17 GM PACK PO SCH (08:04)
[2022-08-26] MEDS: amLODIPine 10 MG TABLET PO SCH (08:04)
[2022-08-26] MEDS: DILTIAZEM 30 MG TABLET PO SCH ×2 (08:04→15:46)
[2022-08-26] MEDS: ASCORBIC ACID 500 MG TABLET PO SCH (08:05)
[2022-08-26] MEDS: SENNA 8.6 MG TABLET PO SCH ×2 (08:05→21:00)
[2022-08-26] MEDS: predniSONE 20 MG TABLET PO SCH (08:05)
[2022-08-26] MEDS: ZINC GLUCONATE 50 MG TABLET PO SCH (08:05)
[2022-08-26] MEDS: TACROLIMUS 0.5 MG CAPSULE PO SCH (08:05)
[2022-08-26] MEDS: CHOLECALCIFEROL 5,000 UNIT TABLET PO SCH (08:05)
[2022-08-26] MEDS: fentaNYL 50 MCG/HR PATCH TRANSDERM SCH (09:56)
[2022-08-26] MEDS: INSULIN GLARGINE 100 UNIT/ML SUBCUT SCH (09:56)
[2022-08-26] MEDS: dexmedeTOMIDine DRIP 400 MCG/100 ML PREMIX IV PRN (10:08)
[2022-08-26] MEDS: APIXABAN 2.5 MG TABLET PO SCH (11:22)
[2022-08-26] MEDS: FAMOTIDINE 20 MG TABLET PO SCH (21:00)
[2022-08-26] MEDS: DILTIAZEM 60 MG TABLET PO SCH (21:00)
[2022-08-26] MEDS: cloNIDine 0.1 MG TABLET PO SCH (21:00)
[2022-08-26] MEDS: DILTIAZEM INJ 100 MG in SODIUM CHLORIDE 0.9% 100 ML IV SCH (22:43)
[2022-08-27] MEDS: INSULIN LISPRO 100 UNIT/ML SUBCUT SCH ×5 (00:04→23:53)
[2022-08-27] MEDS: ALBUTEROL 2.5 MG/3 ML NEB RESP TX SCH ×3 (00:16→13:08)
[2022-08-27] MEDS: DORNASE ALFA 2.5 MG/2.5 ML VIAL RESP TX SCH ×3 (00:17→19:40)
[2022-08-27] MEDS: dexmedeTOMIDine DRIP 400 MCG/100 ML PREMIX IV PRN (01:48)
[2022-08-27 03:57] LABS: Arterial Bicarbonate iSTAT 25.5 MMOL/L (20-26); Arterial pH iSTAT 7.395 (7.35-7.45)
[2022-08-27 04:01] LABS: Basophils # 0.1 10*3/uL (0.0-0.2); Basophils % 0.4 % (0.0-0.8); Eosinophils # 0.1 10*3/uL (0.0-0.87); Eosinophils % 0.8 % (0.00-10.9); Hematocrit 27.3 VOL% (42.0-52.0); Hemoglobin 8.4 GM/DL (14.0-18.0); Immature Granulocytes % 1.2 %; Immature Granulocytes Absolute 0.14 #; Lymphocytes # 0.5 10*3/uL (1.4-4.0); Lymphocytes % 3.9 % (21.2-54.2); Mean Corpuscular HGB Conc 30.8 GM/DL (32-36); Mean Corpuscular Volume 91.3 FL (87-102); Mean Platelet Volume 9.4 FL (9.6-12.0); Monocytes # 0.9 10*3/uL (0.11-0.8); Monocytes % 7.5 % (1.7-12.7); Neutrophils % 86.2 % (38.7-73.9); Platelet Count 286 T/CUMM (130-400); Red Blood Count 2.99 MC/CUMM (3.8-5.5); Red Cell Distribution Width 14.9 % (9.3-17.3); White Blood Count 11.93 T/CUMM (4-12)
[2022-08-27 04:26] LABS: Osmolality,Calculated 294.8 MOS/KG (273-304)
[2022-08-27] MEDS: METOCLOPRAMIDE 10 MG/2 ML VIAL IV SCH ×3 (06:09→21:56)
[2022-08-27] MEDS: CALCIUM ACETATE 667 MG CAPSULE PO SCH ×3 (08:49→17:44)
[2022-08-27] MEDS: MULTIVITAMIN (BEROCCA) TABLET PO SCH (08:49)
[2022-08-27] MEDS: MYCOPHENOLATE MOFETIL 250 MG CAPSULE PO SCH ×2 (08:49→20:28)
[2022-08-27] MEDS: DILTIAZEM 60 MG TABLET PO SCH ×3 (08:49→20:29)
[2022-08-27] MEDS: FERROUS SULFATE 300 MG/5 ML UDCUP PO SCH ×2 (08:49→17:44)
[2022-08-27] MEDS: carvediloL 3.125 MG TABLET PO SCH ×2 (08:49→17:43)
[2022-08-27] MEDS: CHOLECALCIFEROL 5,000 UNIT TABLET PO SCH (08:50)
[2022-08-27] MEDS: amLODIPine 10 MG TABLET PO SCH (08:50)
[2022-08-27] MEDS: ASCORBIC ACID 500 MG TABLET PO SCH (08:50)
[2022-08-27] MEDS: ZINC GLUCONATE 50 MG TABLET PO SCH (08:50)
[2022-08-27] MEDS: INSULIN GLARGINE 100 UNIT/ML SUBCUT SCH (08:50)
[2022-08-27] MEDS: predniSONE 10 MG TABLET PO SCH (08:50)
[2022-08-27] MEDS: POLYETHYLENE GLYCOL POWDER 17 GM PACK PO SCH (08:50)
[2022-08-27] MEDS: SENNA 8.6 MG TABLET PO SCH ×2 (08:50→20:29)
[2022-08-27] MEDS: ALBUTEROL/IPRATROPIUM 3 ML NEB RESP TX SCH ×2 (13:00→19:39)
[2022-08-27] MEDS: LORazepam 2 MG/1 ML VIAL IV PRN (14:36)
[2022-08-27] MEDS: FAMOTIDINE 20 MG TABLET PO SCH (20:28)
[2022-08-27] MEDS: DIAZEPAM 2 MG TABLET PO SCH (20:29)
[2022-08-27] MEDS: cloNIDine 0.1 MG TABLET PO SCH (20:29)
[2022-08-28] MEDS: LORazepam 2 MG/1 ML VIAL IV PRN (00:12)
[2022-08-28] MEDS: ALBUTEROL/IPRATROPIUM 3 ML NEB RESP TX SCH ×4 (01:36→20:06)
[2022-08-28 03:48] LABS: Arterial Bicarbonate iSTAT 22.9 MMOL/L (20-26); Arterial pH iSTAT 7.387 (7.35-7.45)
[2022-08-28 04:06] LABS: Basophils # 0.1 10*3/uL (0.0-0.2); Basophils % 0.7 % (0.0-0.8); Eosinophils # 0.1 10*3/uL (0.0-0.87); Eosinophils % 1.3 % (0.00-10.9); Hemoglobin 8.7 GM/DL (14.0-18.0); Immature Granulocytes % 0.9 %; Lymphocytes # 0.4 10*3/uL (1.4-4.0); Lymphocytes % 4.1 % (21.2-54.2); Mean Corpuscular HGB Conc 31.1 GM/DL (32-36); Mean Corpuscular Volume 91.5 FL (87-102); Mean Platelet Volume 9.3 FL (9.6-12.0); Monocytes # 0.9 10*3/uL (0.11-0.8); Monocytes % 8.4 % (1.7-12.7); Neutrophils % 84.6 % (38.7-73.9); Platelet Count 293 T/CUMM (130-400); Red Blood Count 3.06 MC/CUMM (3.8-5.5); Red Cell Distribution Width 14.6 % (9.3-17.3); White Blood Count 10.67 T/CUMM (4-12)
[2022-08-28 04:12] LABS: Calcium 9.8 MG/DL (8.5-10.1); Potassium 4.3 MMOL/L (3.5-5.1)
[2022-08-28 04:28] LABS: Eosinophils 5 % (0-10); Hypochromia Slight; Lymphocytes 4 % (20-55); Microcytosis Slight; Platelet Estimate Adequate; Total Cells Counted 100
[2022-08-28] MEDS: INSULIN LISPRO 100 UNIT/ML SUBCUT SCH ×4 (06:03→23:43)
[2022-08-28] MEDS: METOCLOPRAMIDE 10 MG/2 ML VIAL IV SCH ×3 (06:20→21:26)
[2022-08-28] MEDS: DORNASE ALFA 2.5 MG/2.5 ML VIAL RESP TX SCH ×2 (08:04→20:06)
[2022-08-28] MEDS: INSULIN GLARGINE 100 UNIT/ML SUBCUT SCH (09:03)
[2022-08-28] MEDS: CALCIUM ACETATE 667 MG CAPSULE PO SCH ×3 (09:03→17:33)
[2022-08-28] MEDS: DILTIAZEM 60 MG TABLET PO SCH ×3 (09:04→20:37)
[2022-08-28] MEDS: DIAZEPAM 2 MG TABLET PO SCH ×2 (09:04→20:38)
[2022-08-28] MEDS: CHOLECALCIFEROL 5,000 UNIT TABLET PO SCH (09:04)
[2022-08-28] MEDS: FERROUS SULFATE 300 MG/5 ML UDCUP PO SCH ×2 (09:04→17:33)
[2022-08-28] MEDS: amLODIPine 10 MG TABLET PO SCH (09:04)
[2022-08-28] MEDS: SENNA 8.6 MG TABLET PO SCH ×2 (09:04→20:38)
[2022-08-28] MEDS: ZINC GLUCONATE 50 MG TABLET PO SCH (09:04)
[2022-08-28] MEDS: predniSONE 10 MG TABLET PO SCH (09:04)
[2022-08-28] MEDS: MYCOPHENOLATE MOFETIL 250 MG CAPSULE PO SCH ×2 (09:04→20:38)
[2022-08-28] MEDS: ASCORBIC ACID 500 MG TABLET PO SCH (09:04)
[2022-08-28] MEDS: MULTIVITAMIN (BEROCCA) TABLET PO SCH (09:04)
[2022-08-28] MEDS: carvediloL 3.125 MG TABLET PO SCH ×2 (09:04→17:33)
[2022-08-28] MEDS: POLYETHYLENE GLYCOL POWDER 17 GM PACK PO SCH (09:05)
[2022-08-28] MEDS: FAMOTIDINE 20 MG TABLET PO SCH (20:38)
[2022-08-28] MEDS: cloNIDine 0.1 MG TABLET PO SCH (20:38)
[2022-08-29] MEDS: ALBUTEROL/IPRATROPIUM 3 ML NEB RESP TX SCH ×4 (00:26→19:30)
[2022-08-29] MEDS: LORazepam 2 MG/1 ML VIAL IV PRN ×2 (03:38→14:05)
[2022-08-29 03:50] LABS: Basophils % 0.4 % (0.0-0.8); Eosinophils # 0.1 10*3/uL (0.0-0.87); Eosinophils % 1.4 % (0.00-10.9); Hematocrit 23.8 VOL% (42.0-52.0); Hemoglobin 7.5 GM/DL (14.0-18.0); Immature Granulocytes % 0.8 %; Immature Granulocytes Absolute 0.08 #; Lymphocytes # 0.5 10*3/uL (1.4-4.0); Lymphocytes % 4.4 % (21.2-54.2); Mean Corpuscular HGB Conc 31.5 GM/DL (32-36); Mean Corpuscular Volume 91.9 FL (87-102); Mean Platelet Volume 8.9 FL (9.6-12.0); Monocytes # 1.2 10*3/uL (0.11-0.8); Monocytes % 11.7 % (1.7-12.7); Neutrophils % 81.3 % (38.7-73.9); Platelet Count 287 T/CUMM (130-400); Red Blood Count 2.59 MC/CUMM (3.8-5.5); Red Cell Distribution Width 14.7 % (9.3-17.3); White Blood Count 10.25 T/CUMM (4-12)
[2022-08-29 04:08] LABS: Calcium 8.9 MG/DL (8.5-10.1); Osmolality,Calculated 298.7 MOS/KG (273-304); Potassium 3.9 MMOL/L (3.5-5.1)
[2022-08-29 04:18] LABS: Eosinophils 3 % (0-10); Hypochromia Slight; Lymphocytes 2 % (20-55); Platelet Estimate Adequate; Total Cells Counted 100
[2022-08-29 04:19] LABS: Microcytosis Slight
[2022-08-29] MEDS: INSULIN LISPRO 100 UNIT/ML SUBCUT SCH ×4 (05:28→23:37)
[2022-08-29] MEDS: METOCLOPRAMIDE 10 MG/2 ML VIAL IV SCH ×3 (05:28→21:14)
[2022-08-29] MEDS: DORNASE ALFA 2.5 MG/2.5 ML VIAL RESP TX SCH ×2 (07:41→19:30)
[2022-08-29] MEDS: carvediloL 3.125 MG TABLET PO SCH ×2 (08:52→16:01)
[2022-08-29] MEDS: DILTIAZEM 60 MG TABLET PO SCH ×3 (08:52→20:13)
[2022-08-29] MEDS: POLYETHYLENE GLYCOL POWDER 17 GM PACK PO SCH (08:52)
[2022-08-29] MEDS: FERROUS SULFATE 300 MG/5 ML UDCUP PO SCH ×2 (08:52→16:01)
[2022-08-29] MEDS: CALCIUM ACETATE 667 MG CAPSULE PO SCH ×3 (08:52→16:01)
[2022-08-29] MEDS: MYCOPHENOLATE MOFETIL 250 MG CAPSULE PO SCH ×2 (08:52→20:14)
[2022-08-29] MEDS: fentaNYL 25 MCG/HR PATCH TRANSDERM SCH (08:52)
[2022-08-29] MEDS: SENNA 8.6 MG TABLET PO SCH ×2 (08:52→20:14)
[2022-08-29] MEDS: INSULIN GLARGINE 100 UNIT/ML SUBCUT SCH (08:52)
[2022-08-29] MEDS: DIAZEPAM 2 MG TABLET PO SCH ×2 (08:52→20:14)
[2022-08-29] MEDS: predniSONE 10 MG TABLET PO SCH (14:08)
[2022-08-29] MEDS: CHOLECALCIFEROL 5,000 UNIT TABLET PO SCH (14:08)
[2022-08-29] MEDS: ZINC GLUCONATE 50 MG TABLET PO SCH (14:08)
[2022-08-29] MEDS: ASCORBIC ACID 500 MG TABLET PO SCH (14:08)
[2022-08-29] MEDS: amLODIPine 10 MG TABLET PO SCH (14:08)
[2022-08-29] MEDS: MULTIVITAMIN (BEROCCA) TABLET PO SCH (14:08)
[2022-08-29] MEDS: cloNIDine 0.1 MG TABLET PO SCH (20:14)
[2022-08-29] MEDS: ACETAMINOPHEN 325 MG TABLET PO PRN (20:14)
[2022-08-29] MEDS: FAMOTIDINE 20 MG TABLET PO SCH (20:14)
[2022-08-30] MEDS: ALBUTEROL/IPRATROPIUM 3 ML NEB RESP TX SCH ×4 (00:40→19:46)
[2022-08-30 03:46] LABS: Basophils % 0.4 % (0.0-0.8); Eosinophils % 0.3 % (0.00-10.9); Hematocrit 24.8 VOL% (42.0-52.0); Hemoglobin 7.8 GM/DL (14.0-18.0); Immature Granulocytes % 0.6 %; Immature Granulocytes Absolute 0.06 #; Lymphocytes # 0.4 10*3/uL (1.4-4.0); Lymphocytes % 3.9 % (21.2-54.2); Mean Corpuscular HGB Conc 31.5 GM/DL (32-36); Mean Corpuscular Volume 91.9 FL (87-102); Mean Platelet Volume 9.1 FL (9.6-12.0); Monocytes # 0.9 10*3/uL (0.11-0.8); Monocytes % 8.4 % (1.7-12.7); Neutrophils % 86.4 % (38.7-73.9); Platelet Count 315 T/CUMM (130-400); Red Cell Distribution Width 14.7 % (9.3-17.3); White Blood Count 10.18 T/CUMM (4-12)
[2022-08-30 04:07] LABS: Calcium 9.7 MG/DL (8.5-10.1); Potassium 4.6 MMOL/L (3.5-5.1)
[2022-08-30 04:23] LABS: Band Neutrophils 3 % (0-10); Lymphocytes 3 % (20-55); Total Cells Counted 100
[2022-08-30 04:24] LABS: Anisocytosis 1+; Ovalocytes Few; Platelet Estimate Normal
[2022-08-30 04:47] LABS: Arterial Base Excess iSTAT -3 MMOL/L (-2.5-2.5); Arterial Bicarbonate iSTAT 20.6 MMOL/L (20-26); Arterial O2 Saturation iSTAT 92 % (95-100); Arterial PCO2 iSTAT 31 MM HG (35-48); Arterial PO2 iSTAT 60 MM HG (80-95); Arterial Total CO2 iSTAT 22 MMO/L (23-27); Arterial pH iSTAT 7.429 (7.35-7.45)
[2022-08-30 05:48] LABS: INR 1.2; PT Patient Result 12.7 SECS (10.1-12.1)
[2022-08-30] MEDS: INSULIN LISPRO 100 UNIT/ML SUBCUT SCH ×3 (05:58→19:07)
[2022-08-30] MEDS: METOCLOPRAMIDE 10 MG/2 ML VIAL IV SCH ×3 (06:00→21:19)
[2022-08-30] MEDS: DORNASE ALFA 2.5 MG/2.5 ML VIAL RESP TX SCH ×2 (07:31→19:46)
[2022-08-30] MEDS ORDERED: LEVOFLOXACIN INJ 750 MG/150 ML PREMIX IV ONE (09:00)
[2022-08-30] MEDS ORDERED: VANCOMYCIN INJ 1,500 MG in SODIUM CHLORIDE 0.9% 500 ML IV PRN (09:15)
[2022-08-30] MEDS: FERROUS SULFATE 300 MG/5 ML UDCUP PO SCH ×2 (09:25→17:14)
[2022-08-30] MEDS: carvediloL 3.125 MG TABLET PO SCH ×2 (09:25→17:14)
[2022-08-30] MEDS: MYCOPHENOLATE MOFETIL 250 MG CAPSULE PO SCH ×2 (09:26→21:15)
[2022-08-30] MEDS: SENNA 8.6 MG TABLET PO SCH ×2 (09:26→21:15)
[2022-08-30] MEDS: MULTIVITAMIN (BEROCCA) TABLET PO SCH (09:26)
[2022-08-30] MEDS: predniSONE 10 MG TABLET PO SCH (09:26)
[2022-08-30] MEDS: DILTIAZEM 60 MG TABLET PO SCH ×3 (09:26→21:15)
[2022-08-30] MEDS: amLODIPine 10 MG TABLET PO SCH (09:26)
[2022-08-30] MEDS: CALCIUM ACETATE 667 MG CAPSULE PO SCH ×3 (09:26→17:13)
[2022-08-30] MEDS: POLYETHYLENE GLYCOL POWDER 17 GM PACK PO SCH (09:26)
[2022-08-30] MEDS: ZINC GLUCONATE 50 MG TABLET PO SCH (09:27)
[2022-08-30] MEDS: ASCORBIC ACID 500 MG TABLET PO SCH (09:27)
[2022-08-30] MEDS: DIAZEPAM 2 MG TABLET PO SCH ×2 (09:27→21:15)
[2022-08-30] MEDS: CHOLECALCIFEROL 5,000 UNIT TABLET PO SCH (09:27)
[2022-08-30] MEDS: MORPHINE 2 MG/1 ML SYRINGE IV PRN (09:33)
[2022-08-30] MEDS: INSULIN GLARGINE 100 UNIT/ML SUBCUT SCH (09:44)
[2022-08-30] MEDS ORDERED: VANCOMYCIN INJ 2,000 MG in SODIUM CHLORIDE 0.9% 500 ML IV ONE ×2 (10:00→17:00)
[2022-08-30] MEDS ORDERED: HEPARIN 10,000 UNIT/10 ML VIAL IV PRN (10:00)
[2022-08-30 11:26] LABS: Hepatitis B Core IgM Quant 0.18 Index; Hepatitis B Surface Ag Quant < 0.10 Index; Hepatitis B Surface Ag Result Non-Reactive (NonReactive); Hepatitis C Virus Ab Quant 0.05 Index; Hepatitis C Virus Ab Result Non-Reactive (NonReactive)
[2022-08-30] MEDS: cloNIDine 0.1 MG TABLET PO SCH (21:15)
[2022-08-30] MEDS: FAMOTIDINE 20 MG TABLET PO SCH (21:15)
[2022-08-31] MEDS: INSULIN LISPRO 100 UNIT/ML SUBCUT SCH ×4 (00:11→20:25)
[2022-08-31] MEDS: LORazepam 2 MG/1 ML VIAL IV PRN (00:22)
[2022-08-31] MEDS: ACETAMINOPHEN 325 MG TABLET PO PRN ×2 (00:46→13:45)
[2022-08-31] MEDS: ALBUTEROL/IPRATROPIUM 3 ML NEB RESP TX SCH ×4 (01:06→19:00)
[2022-08-31 03:36] LABS: Basophils % 0.4 % (0.0-0.8); Eosinophils % 0.5 % (0.00-10.9); Hematocrit 22.5 VOL% (42.0-52.0); Hemoglobin 7.1 GM/DL (14.0-18.0); Immature Granulocytes % 0.7 %; Immature Granulocytes Absolute 0.05 #; Lymphocytes # 0.5 10*3/uL (1.4-4.0); Lymphocytes % 6.4 % (21.2-54.2); Mean Corpuscular HGB Conc 31.6 GM/DL (32-36); Mean Corpuscular Volume 92.2 FL (87-102); Mean Platelet Volume 9.4 FL (9.6-12.0); Monocytes # 0.8 10*3/uL (0.11-0.8); Monocytes % 11.2 % (1.7-12.7); Neutrophils % 80.8 % (38.7-73.9); Platelet Count 312 T/CUMM (130-400); Red Blood Count 2.44 MC/CUMM (3.8-5.5); Red Cell Distribution Width 15.1 % (9.3-17.3); White Blood Count 7.52 T/CUMM (4-12)
[2022-08-31 04:03] LABS: Calcium 9.4 MG/DL (8.5-10.1); Osmolality,Calculated 299.7 MOS/KG (273-304); Potassium 4.1 MMOL/L (3.5-5.1)
[2022-08-31] MEDS: METOCLOPRAMIDE 10 MG/2 ML VIAL IV SCH ×3 (06:23→21:06)
[2022-08-31] MEDS: DORNASE ALFA 2.5 MG/2.5 ML VIAL RESP TX SCH ×2 (06:52→19:10)
[2022-08-31] MEDS: DILTIAZEM 60 MG TABLET PO SCH ×3 (09:00→21:06)
[2022-08-31] MEDS: CALCIUM ACETATE 667 MG CAPSULE PO SCH ×3 (09:00→17:20)
[2022-08-31] MEDS: carvediloL 3.125 MG TABLET PO SCH ×2 (09:00→17:20)
[2022-08-31] MEDS: FERROUS SULFATE 300 MG/5 ML UDCUP PO SCH ×2 (09:00→17:20)
[2022-08-31] MEDS: MULTIVITAMIN (BEROCCA) TABLET PO SCH (09:00)
[2022-08-31] MEDS: CHOLECALCIFEROL 5,000 UNIT TABLET PO SCH (09:01)
[2022-08-31] MEDS: predniSONE 10 MG TABLET PO SCH (09:01)
[2022-08-31] MEDS: amLODIPine 10 MG TABLET PO SCH (09:01)
[2022-08-31] MEDS: ZINC GLUCONATE 50 MG TABLET PO SCH (09:01)
[2022-08-31] MEDS: SENNA 8.6 MG TABLET PO SCH ×2 (09:01→21:06)
[2022-08-31] MEDS: ASCORBIC ACID 500 MG TABLET PO SCH (09:01)
[2022-08-31] MEDS: POLYETHYLENE GLYCOL POWDER 17 GM PACK PO SCH (09:01)
[2022-08-31] MEDS: DIAZEPAM 2 MG TABLET PO SCH ×2 (09:01→21:06)
[2022-08-31] MEDS: MYCOPHENOLATE MOFETIL 250 MG CAPSULE PO SCH ×2 (09:01→21:06)
[2022-08-31] MEDS ORDERED: SODIUM CHLORIDE 0.9% 1,000 ML IV PRN (10:53)
[2022-08-31] MEDS: INSULIN GLARGINE 100 UNIT/ML SUBCUT SCH (13:12)
[2022-08-31] MEDS: cloNIDine 0.1 MG TABLET PO SCH (21:06)
[2022-08-31] MEDS: FAMOTIDINE 20 MG TABLET PO SCH (21:06)
[2022-09-01] MEDS: INSULIN LISPRO 100 UNIT/ML SUBCUT SCH ×4 (00:19→18:54)
[2022-09-01 04:38] LABS: Basophils # 0.1 10*3/uL (0.0-0.2); Basophils % 0.6 % (0.0-0.8); Eosinophils # 0.2 10*3/uL (0.0-0.87); Eosinophils % 2.8 % (0.00-10.9); Hematocrit 25.2 VOL% (42.0-52.0); Hemoglobin 8.2 GM/DL (14.0-18.0); Immature Granulocytes % 0.9 %; Immature Granulocytes Absolute 0.07 #; Lymphocytes # 0.5 10*3/uL (1.4-4.0); Lymphocytes % 5.7 % (21.2-54.2); Mean Corpuscular HGB Conc 32.5 GM/DL (32-36); Mean Corpuscular Volume 89.4 FL (87-102); Mean Platelet Volume 10.1 FL (9.6-12.0); Monocytes # 0.9 10*3/uL (0.11-0.8); Monocytes % 10.7 % (1.7-12.7); Neutrophils % 79.3 % (38.7-73.9); Platelet Count 353 T/CUMM (130-400); Red Blood Count 2.82 MC/CUMM (3.8-5.5); Red Cell Distribution Width 15.1 % (9.3-17.3); White Blood Count 8.13 T/CUMM (4-12)
[2022-09-01 05:00] LABS: Albumin 1.8 G/DL (3.4-5.0); Bilirubin,Total 0.5 MG/DL (0.20-1.00); Calcium 10.8 MG/DL (8.5-10.1); Osmolality,Calculated 301.1 MOS/KG (273-304); Potassium 4.8 MMOL/L (3.5-5.1); Total Protein 5.8 G/DL (6.4-8.2)
[2022-09-01] MEDS: METOCLOPRAMIDE 10 MG/2 ML VIAL IV SCH ×3 (06:25→21:22)
[2022-09-01] MEDS: ALBUTEROL/IPRATROPIUM 3 ML NEB RESP TX SCH ×4 (07:10→18:55)
[2022-09-01] MEDS: DORNASE ALFA 2.5 MG/2.5 ML VIAL RESP TX SCH ×2 (07:10→18:55)
[2022-09-01] MEDS ORDERED: LEVOFLOXACIN INJ 500 MG/100 ML PREMIX IV SCH (09:00)
[2022-09-01] MEDS: INSULIN GLARGINE 100 UNIT/ML SUBCUT SCH (09:00)
[2022-09-01] MEDS: MYCOPHENOLATE MOFETIL 250 MG CAPSULE PO SCH ×2 (09:02→21:22)
[2022-09-01] MEDS: CALCIUM ACETATE 667 MG CAPSULE PO SCH ×3 (09:02→16:36)
[2022-09-01] MEDS: carvediloL 3.125 MG TABLET PO SCH ×2 (09:02→16:36)
[2022-09-01] MEDS: MULTIVITAMIN (BEROCCA) TABLET PO SCH (09:02)
[2022-09-01] MEDS: FERROUS SULFATE 300 MG/5 ML UDCUP PO SCH ×2 (09:02→16:36)
[2022-09-01] MEDS: DILTIAZEM 60 MG TABLET PO SCH ×3 (09:02→21:22)
[2022-09-01] MEDS: fentaNYL 25 MCG/HR PATCH TRANSDERM SCH (09:02)
[2022-09-01] MEDS: ZINC GLUCONATE 50 MG TABLET PO SCH (09:03)
[2022-09-01] MEDS: POLYETHYLENE GLYCOL POWDER 17 GM PACK PO SCH (09:03)
[2022-09-01] MEDS: SENNA 8.6 MG TABLET PO SCH ×2 (09:03→21:21)
[2022-09-01] MEDS: ASCORBIC ACID 500 MG TABLET PO SCH (09:03)
[2022-09-01] MEDS: predniSONE 10 MG TABLET PO SCH (09:03)
[2022-09-01] MEDS: CHOLECALCIFEROL 5,000 UNIT TABLET PO SCH (09:03)
[2022-09-01] MEDS: DIAZEPAM 2 MG TABLET PO SCH ×2 (09:03→21:22)
[2022-09-01] MEDS: amLODIPine 10 MG TABLET PO SCH (09:03)
[2022-09-01] MEDS ORDERED: LIDOCAINE 2% 20 ML VIAL RESP TX ONE (09:15)
[2022-09-01] MEDS: FAMOTIDINE 20 MG TABLET PO SCH (21:22)
[2022-09-01] MEDS: cloNIDine 0.1 MG TABLET PO SCH (21:22)
[2022-09-02] MEDS: INSULIN LISPRO 100 UNIT/ML SUBCUT SCH ×3 (00:42→12:16)
[2022-09-02 03:30] LABS: Arterial Base Excess iSTAT 1 MMOL/L (-2.5-2.5); Arterial Bicarbonate iSTAT 24.2 MMOL/L (20-26); Arterial O2 Saturation iSTAT 94 % (95-100); Arterial PCO2 iSTAT 32 MM HG (35-48); Arterial PO2 iSTAT 65 MM HG (80-95); Arterial Total CO2 iSTAT 25 MMO/L (23-27); Arterial pH iSTAT 7.489 (7.35-7.45)
[2022-09-02 05:04] LABS: Basophils # 0.1 10*3/uL (0.0-0.2); Basophils % 0.5 % (0.0-0.8); Eosinophils # 0.2 10*3/uL (0.0-0.87); Eosinophils % 2.2 % (0.00-10.9); Hematocrit 24.5 VOL% (42.0-52.0); Hemoglobin 7.8 GM/DL (14.0-18.0); Immature Granulocytes % 1.1 %; Lymphocytes # 0.6 10*3/uL (1.4-4.0); Lymphocytes % 5.9 % (21.2-54.2); Mean Corpuscular HGB Conc 31.8 GM/DL (32-36); Mean Corpuscular Volume 89.7 FL (87-102); Mean Platelet Volume 10.1 FL (9.6-12.0); Monocytes # 0.9 10*3/uL (0.11-0.8); Monocytes % 9.6 % (1.7-12.7); Neutrophils % 80.7 % (38.7-73.9); Platelet Count 332 T/CUMM (130-400); Red Blood Count 2.73 MC/CUMM (3.8-5.5); Red Cell Distribution Width 15.6 % (9.3-17.3)
[2022-09-02 05:30] LABS: Albumin 1.7 G/DL (3.4-5.0); Bilirubin,Total 0.6 MG/DL (0.20-1.00); Calcium 11.1 MG/DL (8.5-10.1); Potassium 5.3 MMOL/L (3.5-5.1); Total Protein 5.6 G/DL (6.4-8.2)
[2022-09-02] MEDS: METOCLOPRAMIDE 10 MG/2 ML VIAL IV SCH ×2 (06:23→14:13)
[2022-09-02] MEDS ORDERED: MIDAZOLAM 2 MG/2 ML VIAL IV ONE (06:45)
[2022-09-02] MEDS ORDERED: LIDOCAINE 1% 20 ML VIAL MISC INJ ONE (06:45)
[2022-09-02] MEDS ORDERED: LIDOCAINE 2% VISCOUS 100 ML BOTTLE SWISH/SPIT ONE (06:45)
[2022-09-02] MEDS: DORNASE ALFA 2.5 MG/2.5 ML VIAL RESP TX SCH (07:35)
[2022-09-02] MEDS: ALBUTEROL/IPRATROPIUM 3 ML NEB RESP TX SCH ×3 (07:35→14:06)
[2022-09-02] MEDS: CALCIUM ACETATE 667 MG CAPSULE PO SCH ×3 (08:22→16:09)
[2022-09-02] MEDS: CHOLECALCIFEROL 5,000 UNIT TABLET PO SCH (08:23)
[2022-09-02] MEDS: ASCORBIC ACID 500 MG TABLET PO SCH (08:23)
[2022-09-02] MEDS: carvediloL 3.125 MG TABLET PO SCH ×2 (08:23→16:09)
[2022-09-02] MEDS: FERROUS SULFATE 300 MG/5 ML UDCUP PO SCH ×2 (08:23→16:09)
[2022-09-02] MEDS: INSULIN GLARGINE 100 UNIT/ML SUBCUT SCH (08:23)
[2022-09-02] MEDS: DILTIAZEM 60 MG TABLET PO SCH ×2 (08:23→14:13)
[2022-09-02] MEDS: MULTIVITAMIN (BEROCCA) TABLET PO SCH (08:23)
[2022-09-02] MEDS: predniSONE 10 MG TABLET PO SCH (08:23)
[2022-09-02] MEDS: DIAZEPAM 2 MG TABLET PO SCH (08:23)
[2022-09-02] MEDS: SENNA 8.6 MG TABLET PO SCH (08:23)
[2022-09-02] MEDS: MYCOPHENOLATE MOFETIL 250 MG CAPSULE PO SCH (08:23)
[2022-09-02] MEDS: POLYETHYLENE GLYCOL POWDER 17 GM PACK PO SCH (08:23)
[2022-09-02] MEDS: amLODIPine 10 MG TABLET PO SCH (08:28)
[2022-09-02] MEDS: ZINC GLUCONATE 50 MG TABLET PO SCH (08:28)
[2022-09-02 09:24] VITALS: BP 138/73
[2022-09-02] MEDS ORDERED: VANCOMYCIN INJ 500 MG in SODIUM CHLORIDE 0.9% 100 ML IV PRN (09:36)
[2022-09-02] MEDS ORDERED: VANCOMYCIN INJ 500 MG in SODIUM CHLORIDE 0.9% 100 ML IV ONE (12:30)
== END 2022-09-02 16:22 | DRG 4 ==
LOC: N.ED 12:14 → SUATTDRO 15:29 → N.EDINP 15:29 → N.CC 18:14
PROVIDERS: ADMIT Internal Medicine; ATTEND Internal Medicine
PROC: EGDWPEG (ICD-10-PCS; 2022-08-29 11:20)